=== PATIENT | male | born 1950 | race Caucasian/White ===

== ENCOUNTER → 2016-08-24 | Outpatient (CLI) | payer BC ==
[2014-11-17 11:24] VITALS: BP 138/78
[~2016-08-24] MED LIST: ASPI-482 PO; HYDR-2666 PO; LISI10TA2 PO; MECL12.5 PO; ONDA4TAB7 PO; TRAM50TA PO
--- NOTE | 2016-08-24 13:04 | RAD ---
Barrett Hernandez ultrasound abdomen complete on 08/24/2016 at 0812 hours Indication: Bloating and recent food poisoning. The visualized pancreas is unremarkable. The aorta and IVC are unremarkable. The liver is normal in size. There is mild increased echogenicity consistent with fatty infiltration. No discrete mass is detected. The gallbladder is without stones or sludge. No wall thickening or pericholecystic fluid is identified. No biliary ductal dilatation is seen. The kidneys are unremarkable apart from a nonobstructing 9 mm calculus in the left kidney. No hydronephrosis is seen. There is no ascites. The spleen is unremarkable. Impression: Fatty infiltration of the liver and nonobstructing left renal calculus. There is no evidence of cholelithiasis or acute cholecystitis. MTDD
== END | disposition home or self-care (01) ==
LOC: US 07:15
PROVIDERS: ATTEND Family Medicine
DX: R10.11 Right upper quadrant pain (principal); R14.0 Abdominal distension (gaseous); A05.9 Bacterial foodborne intoxication, unspecified; K76.0 Fatty (change of) liver, not elsewhere classified; N20.0 Calculus of kidney
CPT/HCPCS: 76700

== ENCOUNTER → 2017-03-23 | Outpatient (CLI) | payer BC ==
[2014-11-17 11:24] VITALS: BP 138/78
[~2017-03-23] MED LIST changes: +BUPIVACAINE MPF 0.5% 10 ML VIAL for KCIC. IJ ONE; -HYDR-2666 PO; +HYDR-2758 PO; +IOHEXOL 300 MG/ML 50 ML VIAL. INT ART ONE; +LIDOCAINE 1% Multi-Dose 20 ML VIAL. ID ONE; +methylPREDNISolone ACETATE 40 MG/ML VIAL. INT ART ONE
--- NOTE | 2017-03-23 13:48 | KCIC ---
PROCEDURE Therapeutic right hip injection using fluoroscopic guidance. HISTORY Hip pain. Pain for 3 or 4 months. TECHNIQUE The procedure was explained to the patient as were potential risks, including infection, bleeding or allergic reaction. All questions were answered. Informed written and verbal consent was obtained. The hip was prepped and draped in the usual sterile manner. Following administration of local anesthetic, a 22-gauge spinal needle was advanced into the hip joint without difficulty, with care taken to avoid the vascular structures. Stylet was removed and following negative aspiration, a mixture of 4 cc Omnipaque-300, 2 cc (80 mg) Depo-Medrol, 4 cc 0.5% Marcaine and 4 cc 1% lidocaine were injected without difficulty. Fluoroscopy demonstrates uniform and satisfactory distribution of the injection through the hip. The needle was removed. There was good hemostasis at the injection site. The patient left in stable condition without immediate complication. A single spot image was obtained. FLUOROSCOPY TIME: 19 seconds Electronically signed by: Charli Ho MD (03/23/2017 1:45 PM) [facility]-KCIC2
== END | disposition home or self-care (01) ==
LOC: KCIC 10:04
PROVIDERS: ATTEND Nurse Practitioner Gerontology
DX: M25.551 Pain in right hip (principal)
CPT/HCPCS: 20610; 77002; J1030; Q9967

== ENCOUNTER → 2017-08-27 | Outpatient (CLI) | payer BC | END | disposition home or self-care (01) | LOC: KCIC 14:09 | DX: Z01.818 Encounter for other preprocedural examination (principal); Z87.891 Personal history of nicotine dependence | CPT/HCPCS: 71046 ==

== ENCOUNTER → 2018-09-16 | Outpatient (CLI) | payer MEDICARE, OTHER ==
[2014-11-17 11:24] VITALS: BP 138/78
[~2018-09-16] MED LIST changes: -BUPIVACAINE MPF 0.5% 10 ML VIAL for KCIC. IJ ONE; -HYDR-2758 PO; +HYDR-2761 PO; -IOHEXOL 300 MG/ML 50 ML VIAL. INT ART ONE; -LIDOCAINE 1% Multi-Dose 20 ML VIAL. ID ONE; -methylPREDNISolone ACETATE 40 MG/ML VIAL. INT ART ONE
--- NOTE | 2018-09-16 16:11 | KCIC ---
EXAM: Abdomen one view. HISTORY: Left renal stone. COMPARISON: 03/30/2011. FINDINGS: A frontal view of the abdomen is obtained. A calculus lateral to the left L3 transverse process measures 1.4 x 0.7 cm. No clear additional renal calculi are identified bilaterally. There are no distended small bowel loops. There is gas distally. Instrumented posterior fusion changes extend from L2 through both iliac wings. There are instrumented anterior fusion changes at L5-S1, and laminectomies from L3 through L5. A right total hip arthroplasty is partially visualized. IMPRESSION: 1. Findings consistent with a 1.4 cm left proximal ureteral calculus. CT could further evaluate if the diagnosis remains unclear. Electronically signed by: Darnell Plasencia MD (09/16/2018 4:08 PM) [facility]
== END | disposition home or self-care (01) ==
LOC: KCIC 12:41
PROVIDERS: ATTEND Urology
DX: N20.9 Urinary calculus, unspecified (principal)
CPT/HCPCS: 74018

== ENCOUNTER → 2018-10-15 | Outpatient (CLI) | payer MEDICARE, OTHER ==
[2014-11-17 11:24] VITALS: BP 138/78
--- NOTE | 2018-10-16 08:58 | KCIC ---
KUB Clinical Indication: Ureteral calculus. Comparison: KUB, September 16, 2018. Findings: There are 3 proximal left ureteral calculi in a row, largest measuring 9 x 6 mm. There are at least 2 sub-5 mm left renal calculi. No definite right renal calculus is seen. The bowel gas pattern is nonobstructive. Redemonstrated posterior fusion hardware of the lumbar spine and sacroiliac joints. Fusion hardware L5/S1. This Multilevel posterior decompression. Right hip arthroplasty. Diffuse demineralization. IMPRESSION: There are 3 proximal left ureteral calculi. Electronically signed by: Agustín Cruz MD (10/16/2018 8:54 AM) [id number]
== END | disposition home or self-care (01) ==
LOC: KCIC 15:18
PROVIDERS: ATTEND Urology
DX: N20.1 Calculus of ureter (principal)
CPT/HCPCS: 74018

== ENCOUNTER → 2018-11-28 | Outpatient (CLI) | payer MEDICARE, OTHER ==
[2014-11-17 11:24] VITALS: BP 138/78
--- NOTE | 2018-11-28 14:01 | KCIC ---
CT HEAD WO CONTRAST History: Daily headaches for 6 months Comparison: November 15, 2014 Technique: Noncontrast CT imaging was performed of the head. Exposure: One or more of the following individualized dose reduction techniques were utilized for this examination: 1. Automated exposure control 2. Adjustment of the mA and/or kV according to patient size 3. Use of iterative reconstruction technique. Findings: No acute extra-axial or parenchymal hemorrhage is identified. There is no significant intra-axial mass effect, midline shift, or extra-axial fluid collection. The simmons-white differentiation of the major vascular territories is preserved. The ventricles, sulci, and cisterns are within normal limits in size and configuration. The mastoid air cells and the visualized paranasal sinuses are aerated. No acute calvarial abnormality is identified. Impression: 1. No acute intracranial abnormality is identified. Electronically signed by: Parish Thomas MD (11/28/2018 1:58 PM) [facility]-KCIC1
== END | disposition home or self-care (01) ==
LOC: KCIC CT 13:14
PROVIDERS: ATTEND Family Medicine
DX: G44.52 New daily persistent headache (NDPH) (principal)
CPT/HCPCS: 70450

== ENCOUNTER 2019-01-01 11:47 | Inpatient (IN) | payer MEDICARE, OTHER ==
[~2019-01-01] VITALS: Ht 177.8 cm; Wt 100.0 kg
[2019-01-01] MEDS ORDERED: IV NORMAL SALINE 1000ML BAG 1,000 ML IV SCH (12:24)
[2019-01-01] MEDS ORDERED: MAGNESIUM HYDROXIDE 2,400 MG/30 ML ORAL.SUSP. PO PRN (12:30)
[2019-01-01] MEDS ORDERED: ONDANSETRON PF 4 MG/2 ML VIAL. IV PRN (12:30)
[2019-01-01] MEDS ORDERED: MAG HYDROX/ALUMINUM HYD/SIMETH 30 ML ORAL.SUSP PO PRN (12:30)
--- NOTE | 2019-01-01 12:50 | PDOC1 ---
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 and just had a temporal artery biopsy that was negative and has been on Prednisone intermittently over the summer until about a month ago. UA suggested he was de hydrated and had some bile in it, he was afebrile at the visit but sweating and mildly tachycardic with activity but not at rest, exam was non specific, some recent cat scratches did not appear infected and some erythema of left lower rosales was not consistent with cellulitis. Labs were drawn and he was given 2 grams of Rocephin Im as he did not want to be hospitalized, he was instructed to drink a gallon of fluid by bedtime and go to ER if wymptoms worsenes, they did not but he is not feeling better today. His lab showed a low WBC, low platelets, mildly elevated LFTs and glucose and a severe decline in his baseline renal function with eGFR in the 30s. He wanted to be hospitalized and is a direct admit for eval of sepsis, LAYO Past Medical History Cardiovascular: HTN Pulmonary: No pertinent hx GI: Irritable bowel disease Heme/Onc: No pertinent hx Hepatobiliary: Other (fatty liver) Psych: No pertinent hx Rheumatologic: Other (OA, hx of + RF) Infectious disease: No pertinent hx, Other (Lyme disease 1989) ENT: No pertinent hx Renal/: Other Endocrine: Other (glucose intolerance) Dermatology: Other (recent cat scratches) Past Surgical History Past Surgical History: Cataract Removal, Total knee replacement, Other Family History Family History: Coronary Artery Disease, Diabetes, Other Social History ALCOHOL: other Drugs: None Current Medications Current Medications Current Medications Medications (Trade) Dose Ordered Sig/Joelle Start Time Stop Time Status Last Admin Dose Admin Acetaminophen (Tylenol) 650 mg PRN Q6HRS PRN 01/01/19 12:30 UNV Al Hydroxide/Mg Hydroxide (Mylanta Plus Xs) 30 ml PRN Q3HRS PRN 01/01/19 12:30 UNV Enoxaparin Sodium (Lovenox 40mg Syringe) 40 mg Q24H 01/01/19 12:30 UNV Magnesium Hydroxide (Milk Of Magnesia) 2,400 mg PRN Q12HR PRN 01/01/19 12:30 UNV Ondansetron HCl (Zofran) 4 mg PRN Q6HRS PRN 01/01/19 12:30 UNV Potassium Chloride/Sodium Chloride 1,000 ml @ 100 mls/hr Q10H 01/01/19 12:24 UNV Sodium Chloride 1,000 ml @ 100 mls/hr Q10H 01/01/19 12:24 01/01/19 22:23 UNV Zolpidem Tartrate (Ambien) 5 mg PRN QHS PRN 01/01/19 12:30 UNV Allergies Allergies Allergies Coded Allergies Type Severity Reaction Last Updated Verified No Known Drug Allergies 11/15/14 No ROS Review of System CONSTITUTIONAL: No fever or chills EYES: No recent changes SKIN: No rash or itching CARDIOVASCULAR: No chest pain, syncope, palpitations, or edema RESPIRATORY: No SOB or cough GASTROINTESTINAL: No nausea, vomiting or abdominal pain NEUROLOGICAL: No headaches or weakness ENDOCRINE: No cold or heat intolerance GENITOURINARY: No urgency or frequency of urination MUSCULOSKELETAL: No back pain or joint pain LYMPHATICS: No enlarged lymph nodes PSYCHIATRIC: No anxiety or depression Physical Exam Physical Exam GEN.: No apparent distress. Alert and oriented. HEENT: Head is normocephalic, atraumatic NECK: Supple. LUNGS: Clear to auscultation. HEART: RRR, S1, S2 present. Peripheral pulses intact ABDOMEN: Soft, nontender. Positive bowel sounds. EXTREMITIES: Without any cyanosis. NEUROLOGIC: Normal speech, normal tone PSYCHIATRIC: Normal affect, normal mood. SKIN: No ulcerations VTE Prophylaxis Ordered VTE Prophylaxis Devices: Yes VTE Pharmacological Prophylaxi: No Assessment/Plan Assessment/Plan fever sepsis -acute leukopenia, thrombocytopenia LAYO abnormal Lfts Rheumatoid factor positive OA hx of PMR hx of Lyme arthritis - 1989 glucose intolerance low testosterone on replacement Vitamin D def Manuel HOLLAND MD Jan 01, 2019 12:50
[2019-01-01 13:00] VITALS: BP 105/44
[2019-01-01] MEDS ORDERED: HYDROcodone/APAP 5/325MG 1 TAB TABLET PO PRN (13:00)
--- NOTE | 2019-01-01 14:14 | EKG ---
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
[2019-01-01] MEDS: ONDANSETRON ODT 4 MG TAB.RAPDIS. PO SCH ×2 (14:28→18:45)
[2019-01-01] MEDS: ENOXAPARIN 40 MG/0.4 ML SYRINGE. SQ SCH (14:30)
[2019-01-01 15:00] VITALS: BP 129/111
[2019-01-01 15:01] LABS: PROTHROMBIN TIME PATIENT 13.4 SEC (11.7-14.0)
--- NOTE | 2019-01-01 17:03 | RAD ---
EXAM: PA and Lateral Views of the Chest DATE: 01/01/2019 12:24 PM INDICATION: Fever COMPARISON: 08/27/2017 FINDINGS: The heart is not enlarged. Mediastinal and hilar contours are normal. Linear opacities in the lung bases likely scarring/atelectasis. No lobar consolidation. No pleural effusion or pneumothorax. IMPRESSION: 1. No radiographic evidence for acute cardiopulmonary process. Electronically signed by: Michel Krishnamurthy MD (01/01/2019 5:01 PM) [facility]
[2019-01-01] MEDS ORDERED: cefTRIAXone IV Push 2 GM VIAL. IVP ONE (17:30)
[2019-01-01] MEDS ORDERED: AZITHROMYCIN 250 MG TABLET. PO ONE (17:30)
[2019-01-01 17:33] LABS: BASO % 1 % (0-3); EOS % 0 % (0-3); HEMATOCRIT 45.6 % (39.0-53.0); HEMOGLOBIN 15.8 g/dL (13.0-17.5); LYMPH # 0.4 x10^3/uL (1.0-4.8); LYMPH % 25 % (24-48); MEAN CORPUSCULAR HEMOGLOBIN 29 pg (25-35); MEAN CORPUSCULAR HGB CONC 35 g/dL (31-37); MEAN CORPUSCULAR VOLUME 83 fL (79-100); MONO # 0.3 x10^3/uL (0.0-1.1); MONO % 17 % (0-9); NEUT # 0.8 x10^3/uL (1.8-7.7); NEUT % 57 % (31-73); PLATELET COUNT 89 x10^3/uL (140-400); RED BLOOD COUNT 5.48 x10^6/uL (4.30-5.70); RED CELL DISTRIBUTION WIDTH 15.6 % (11.5-14.5)
[2019-01-01 17:36] LABS: CREATININE 1.7 mg/dL (0.7-1.3); GFR 40.2; POTASSIUM 3.7 mmol/L (3.5-5.1)
[2019-01-01 17:37] LABS: WHITE BLOOD COUNT 1.5 x10^3/uL (4.0-11.0)
[2019-01-01 17:44] LABS: PHOSPHORUS 2.7 mg/dL (2.6-4.7)
--- NOTE | 2019-01-01 17:49 | RAD ---
Limited abdominal ultrasound HISTORY: Abnormal LFTs. Fever. TECHNIQUE: Routine multiplanar sequences are obtained. FINDINGS: Liver is borderline enlarged at 17.9 cm. Coarse hepatic echogenicity, would most likely be due to steatosis. This does limit ultrasound penetration with could compromise detection of hepatic lesion. Echogenic reflector with posterior shadowing in the liver, compatible with an 11 mm calcification. Note that a calcification is seen in liver on prior CT of 02/28/2011, possibly the same structure. Right kidney measures 11.9 cm longitudinal without hydronephrosis. Small echogenic reflecting focus within the mid pole likely a small calculus. No definite right renal lesion. No significant gallbladder wall thickening. No evidence of gallstone. No biliary ductal dilatation. Pancreas, inferior vena cava and aorta are poorly visualized. IMPRESSION: 1. Borderline hepatomegaly with steatosis. Calcified lesion within the liver, may represent a granuloma, probably also visualized on CT scan from 2010. 2. Right renal echogenic focus likely a calculus, without evidence of hydronephrosis. Electronically signed by: Charli Ho MD (01/01/2019 5:46 PM) [facility]
[2019-01-01 18:17] LABS: BILIRUBIN,URINE NEGATIVE (NEG); CLARITY,URINE CLEAR; COLOR,URINE YELLOW; NITRITE,URINE NEGATIVE (NEG); PROTEIN,URINE NEGATIVE (NEG-TRACE); UROBILINOGEN,URINE 0.2 mg/dL (0.2 mg/dL)
[2019-01-01 18:24] LABS: BACTERIA,URINE FEW /HPF (0-FEW); HYALINE CASTS, URINE MODERATE /HPF; SQUAMOUS EPITHELIAL CELL,UR FEW /LPF
[2019-01-01 18:26] LABS: RBC,URINE OCC /HPF (0-2)
[2019-01-01 18:36] LABS: % ATYL 6 % (0-0); % BANDS 29 % (0-9); % BASOS 1 % (0-3); % LYMPHS 24 % (24-48); % MONOS 16 % (0-10); % SEGS 24 % (35-66); PLT ESTIMATE DECREASED (ADEQUATE)
[2019-01-01 18:37] LABS: ANISOCYTOSIS SLIGHT; OVALOCYTES FEW
[2019-01-01 18:39] LABS: INFLUENZA A PATIENT NEGATIVE (NEGATIVE); INFLUENZA B PATIENT NEGATIVE (NEGATIVE)
[2019-01-01] MEDS: CEFEPIME HCL IV Push 1 GM VIAL. IVP SCH (18:45)
[2019-01-01] MEDS: DOXYCYCLINE HYCLATE 100 MG TABLET PO SCH ×2 (18:45→20:39)
[2019-01-01 19:00] VITALS: BP 92/60
[2019-01-01] MEDS ORDERED: FLU VAX QS 2019-20 (36MOS+)/PF 0.5 ML SYRINGE. VAX IM ONE (19:00)
--- NOTE | 2019-01-01 19:20 | NUR ---
Admission interview done w/pt, who includes the following details regarding his medical history/providers at [facility]. Pt feels that most of this information should be available "in the cloud", and would like [facility] to request this information to supplement the testing already done this admission. MDs involved in patient's care include: Dr. Simpson- bilateral TKRs, approximately 8-9 years ago ([id number]) [employer]- Dr. Teresa Francis Quill Layer-Dr. Maribel Ayala. Pt has hearing difficulty, hearing on R is better than on L. 'Needs hearing aids, but they don't work well enough yet for me to pay $600 to get them'. Ortho-hip replacement Dr. Naresh Yen. R hip done 05/2018 Urologist- Dr. Jaffe. Seen for temporary stent placement in [facility] for kidney stones 06/2018. Pt reports passing 5 stones last week, has pics on his phone. Ortho-back Dr. Alex Terrazasij L1-S2 laminectomy and fusion. 'First surgery failed, had to do this procedure the second time." 09/2017 Dr. Swapnil Rivera at [facility] [place] did bilateral lens replacement following cataract removal 4 years ago (2014). Vision corrected to 20/20 at 18", pt does wear reading glasses. Pt relates history of transient fevers, sweating profusely, becomes dehydrated rapidly. Temps range from 98.6-102.6. Also has a headache for approximately one week, temporal, worse on R.
[2019-01-01] MEDS: ACETAMINOPHEN 325 MG TABLET. PO PRN (22:50)
[2019-01-01] MEDS: ZOLPIDEM 5 MG TABLET. PO PRN (22:56)
[2019-01-01] MEDS: traMADol 50 MG TABLET PO PRN (22:56)
[2019-01-01 23:00] VITALS: BP 111/57
[2019-01-02] VITALS (7 sets, daily range): BP systolic 120–135; BP diastolic 68–83
[2019-01-02] MEDS: CEFEPIME HCL IV Push 1 GM VIAL. IVP SCH ×4 (00:33→22:04)
[2019-01-02 04:58] LABS: BASO % 1 % (0-3); EOS % 1 % (0-3); HEMATOCRIT 38.6 % (39.0-53.0); HEMOGLOBIN 13.2 g/dL (13.0-17.5); LYMPH # 0.8 x10^3/uL (1.0-4.8); LYMPH % 51 % (24-48); MEAN CORPUSCULAR HEMOGLOBIN 29 pg (25-35); MEAN CORPUSCULAR HGB CONC 34 g/dL (31-37); MEAN CORPUSCULAR VOLUME 84 fL (79-100); MONO # 0.3 x10^3/uL (0.0-1.1); MONO % 17 % (0-9); NEUT # 0.5 x10^3/uL (1.8-7.7); NEUT % 31 % (31-73); PLATELET COUNT 86 x10^3/uL (140-400); RED CELL DISTRIBUTION WIDTH 15.1 % (11.5-14.5)
[2019-01-02 05:04] LABS: WHITE BLOOD COUNT 1.7 x10^3/uL (4.0-11.0)
[2019-01-02 05:14] LABS: ALBUMIN 2.9 g/dL (3.4-5.0); ALBUMIN/GLOBULIN RATIO 0.9 (1.0-1.7); CALCIUM 8.2 mg/dL (8.5-10.1); CREATININE 1.3 mg/dL (0.7-1.3); GFR 54.7; POTASSIUM 3.7 mmol/L (3.5-5.1); TOTAL BILIRUBIN 0.5 mg/dL (0.2-1.0)
[2019-01-02] MEDS: traMADol 50 MG TABLET PO PRN ×3 (07:01→20:57)
[2019-01-02] MEDS: ONDANSETRON ODT 4 MG TAB.RAPDIS. PO SCH ×4 (07:02→17:58)
[2019-01-02] MEDS: ACETAMINOPHEN 325 MG TABLET. PO PRN ×3 (07:02→21:02)
[2019-01-02] MEDS: DOXYCYCLINE HYCLATE 100 MG TABLET PO SCH ×2 (09:21→20:57)
--- NOTE | 2019-01-02 10:24 | PDOC ---
Infectious Disease Note Vital Sign Vital Signs Vital Signs Date Time Temp Pulse Resp B/P (MAP) Pulse Ox O2 Delivery O2 Flow Rate FiO2 01/02/19 09:23 16 Room Air 01/02/19 07:00 98.2 80 135/68 (90) 95 98.2 Labs Lab Laboratory Tests Test 01/01/19 14:19 01/01/19 15:15 01/01/19 16:36 01/01/19 17:29 White Blood Count 1.5 x10^3/uL (4.0-11.0) Red Blood Count 5.48 x10^6/uL (4.30-5.70) Hemoglobin 15.8 g/dL (13.0-17.5) Hematocrit 45.6 % (39.0-53.0) Mean Corpuscular Volume 83 fL (79-100) Mean Corpuscular Hemoglobin 29 pg (25-35) Mean Corpuscular Hemoglobin Concent 35 g/dL (31-37) Red Cell Distribution Width 15.6 % (11.5-14.5) Platelet Count 89 x10^3/uL (140-400) Neutrophils (%) (Auto) 57 % (31-73) Lymphocytes (%) (Auto) 25 % (24-48) Monocytes (%) (Auto) 17 % (0-9) Eosinophils (%) (Auto) 0 % (0-3) Basophils (%) (Auto) 1 % (0-3) Neutrophils # (Auto) 0.8 x10^3/uL (1.8-7.7) Lymphocytes # (Auto) 0.4 x10^3/uL (1.0-4.8) Monocytes # (Auto) 0.3 x10^3/uL (0.0-1.1) Eosinophils # (Auto) 0.0 x10^3/uL (0.0-0.7) Basophils # (Auto) 0.0 x10^3/uL (0.0-0.2) Segmented Neutrophils % 24 % (35-66) Band Neutrophils % 29 % (0-9) Lymphocytes % 24 % (24-48) Atypical Lymphocytes % (Manual) 6 % (0-0) Monocytes % 16 % (0-10) Basophils % 1 % (0-3) Platelet Estimate Decreased (ADEQUATE) Large Platelets Occ Anisocytosis Slight Ovalocytes Few Erythrocyte Sedimentation Rate 2 (0-15) Prothrombin Time 13.4 SEC (11.7-14.0) Prothromb Time International Ratio 1.1 (0.8-1.1) Sodium Level 137 mmol/L (136-145) Potassium Level 3.7 mmol/L (3.5-5.1) Chloride Level 101 mmol/L (98-107) Carbon Dioxide Level 27 mmol/L (21-32) Anion Gap 9 (6-14) Blood Urea Nitrogen 19 mg/dL (8-26) Creatinine 1.7 mg/dL (0.7-1.3) Estimated GFR (Cockcroft-Gault) 40.2 Glucose Level 109 mg/dL (70-99) Calcium Level 9.0 mg/dL (8.5-10.1) Phosphorus Level 2.7 mg/dL (2.6-4.7) Magnesium Level 2.0 mg/dL (1.8-2.4) Procalcitonin 0.40 ng/mL (0.00-0.10) Rheumatoid Factor 42.0 IU/mL (0.0-13.9) Influenza Type A Antigen Negative (NEGATIVE) Influenza Type B Antigen Negative (NEGATIVE) Urine Collection Type Unknown Urine Color Yellow Urine Clarity Clear Urine pH 6.0 Urine Specific [place]ote 1.015 Urine Protein Negative mg/dL (NEG-TRACE) Urine Glucose (UA) Negative mg/dL (NEG) Urine Ketones (Stick) Negative mg/dL (NEG) Urine Blood Negative (NEG) Urine Nitrite Negative (NEG) Urine Bilirubin Negative (NEG) Urine Urobilinogen Dipstick 0.2 mg/dL (0.2 mg/dL) Urine Leukocyte Esterase Negative (NEG) Urine RBC Occ /HPF (0-2) Urine WBC 1-4 /HPF (0-4) Urine Squamous Epithelial Cells Few /LPF Urine Renal Epithelial Cells Few /LPF Urine Bacteria Few /HPF (0-FEW) Urine Hyaline Casts Moderate /HPF Urine Mucus Marked /LPF Glucose (Fingerstick) 113 mg/dL (70-99) Test 01/01/19 19:29 01/01/19 21:28 01/02/19 04:05 01/02/19 07:36 Lactic Acid Level 1.3 mmol/L (0.4-2.0) Glucose (Fingerstick) 124 mg/dL (70-99) 88 mg/dL (70-99) White Blood Count 1.7 x10^3/uL (4.0-11.0) Red Blood Count 4.60 x10^6/uL (4.30-5.70) Hemoglobin 13.2 g/dL (13.0-17.5) Hematocrit 38.6 % (39.0-53.0) Mean Corpuscular Volume 84 fL (79-100) Mean Corpuscular Hemoglobin 29 pg (25-35) Mean Corpuscular Hemoglobin Concent 34 g/dL (31-37) Red Cell Distribution Width 15.1 % (11.5-14.5) Platelet Count 86 x10^3/uL (140-400) Neutrophils (%) (Auto) 31 % (31-73) Lymphocytes (%) (Auto) 51 % (24-48) Monocytes (%) (Auto) 17 % (0-9) Eosinophils (%) (Auto) 1 % (0-3) Basophils (%) (Auto) 1 % (0-3) Neutrophils # (Auto) 0.5 x10^3/uL (1.8-7.7) Lymphocytes # (Auto) 0.8 x10^3/uL (1.0-4.8) Monocytes # (Auto) 0.3 x10^3/uL (0.0-1.1) Eosinophils # (Auto) 0.0 x10^3/uL (0.0-0.7) Basophils # (Auto) 0.0 x10^3/uL (0.0-0.2) Sodium Level 138 mmol/L (136-145) Potassium Level 3.7 mmol/L (3.5-5.1) Chloride Level 105 mmol/L (98-107) Carbon Dioxide Level 24 mmol/L (21-32) Anion Gap 9 (6-14) Blood Urea Nitrogen 15 mg/dL (8-26) Creatinine 1.3 mg/dL (0.7-1.3) Estimated GFR (Cockcroft-Gault) 54.7 BUN/Creatinine Ratio 12 (6-20) Glucose Level 90 mg/dL (70-99) Calcium Level 8.2 mg/dL (8.5-10.1) Total Bilirubin 0.5 mg/dL (0.2-1.0) Aspartate Amino Transf (AST/SGOT) 66 U/L (15-37) Alanine Aminotransferase (ALT/SGPT) 50 U/L (16-63) Alkaline Phosphatase 103 U/L (46-116) Total Protein 6.0 g/dL (6.4-8.2) Albumin 2.9 g/dL (3.4-5.0) Albumin/Globulin Ratio 0.9 (1.0-1.7) Objective Assessment Fever Leukopenia with bandemia Lymphocytosis Cat scratch Tick bites and bug bite Plan Plan of Care Feeling a little better Could be viral/tick - unlikley Lyme/cat scratch - Bartonella or Pasturella Check RMSF/Ehrlichia/Bartonella/[place]/HSV/CMV/EBV Cont Doxy and Cefepime F/u labs and cults D/w D/w lab Acquire labs from [facility] from 12/25 Thank you # [id number] SARBJIT PATTERSON MD Jan 02, 2019 10:23
[2019-01-02] MEDS: ENOXAPARIN 40 MG/0.4 ML SYRINGE. SQ SCH (11:59)
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
--- NOTE | 2019-01-02 17:07 | PDOC ---
PROGRESS NOTES Subjective Febrile overnight, renal function responded well to IV hydration, RF +, neutropenic with increased lymphs, Heme consulted but does not think he has Leukemia, he remains alert Objective febrile to 100.2 BP: stable General: A&O, no obvious pain or effusion or synovitis Heart: RRR Lungs: no cough Abd: non tender Ext: no C/C/E Skin: no significant rash WBC: 1.7 Hgb: 13.2 K+: 3.7 Creat: 1.3 Vital Signs Vital Signs Date Time Temp Pulse Resp B/P (MAP) Pulse Ox O2 Delivery O2 Flow Rate FiO2 01/02/19 16:09 16 95 Room Air 01/02/19 15:00 98.2 65 130/70 (90) 98.2 I & O Intake and Output 01/02/19 06:59 Intake Total 1800 ml Output Total 1925 ml Balance -125 ml Intake Oral 800 ml IV Total 1000 ml Output Urine Total 1925 ml # Voids 2 Assessment and Plan sepsis -acute leukopenia, thrombocytopenia - IV abx, ID following LAYO - improved abnormal [facility] Rheumatoid factor positive OA hx of PMR hx of Lyme arthritis - 1989 glucose intolerance low testosterone on replacement Vitamin D def possible leukemia - Heme consult Manuel HOLLAND MD Jan 02, 2019 17:07
[2019-01-02] MEDS: ZOLPIDEM 5 MG TABLET. PO PRN (20:57)
[2019-01-03] MEDS: ONDANSETRON ODT 4 MG TAB.RAPDIS. PO SCH ×5 (01:04→23:56)
--- NOTE | 2019-01-03 03:31 | CONS ---
DATE OF CONSULTATION: 01/02/2019 MEDICAL ONCOLOGY CONSULTATION CONSULTATION REQUESTED BY: Dr. Jared Napier. REASON FOR CONSULTATION: Leukopenia, thrombocytopenia and fever. HISTORY OF PRESENT ILLNESS: The patient is a 68-year-old gentleman who has had fever and night sweats since 12/28/2018 and he was evaluated by his primary care physician on 01/01/2019 and subsequently admitted to for further evaluation. He has been seeing his dragline mechanic at [facility] for workup of possible temporal arteritis and he underwent a temporal artery biopsy that was negative. He has been on prednisone intermittently over the summer of 2018. He also notes that his cat had scratched him recently. He was admitted to and started on antibiotics. He was noted to have leukopenia with a WBC of 1.5 on 01/01/2019 and a platelet count of 89 and hemoglobin of 15.8. His differential count revealed elevated bands at 29% and 16% monocytes. However, the absolute monocyte count was normal. There was no evidence of blasts noted in the peripheral smear. I was asked to see the patient for further evaluation of thrombocytopenia and leukopenia. The patient denies any nosebleeds or gum bleeding. No hematemesis, melena or hematochezia. No hemoptysis or hematuria. No loss of weight or loss of appetite. PAST MEDICAL HISTORY: Hypertension, irritable bowel disease, fatty liver, osteoarthritis, positive rheumatoid factor and history of Lyme disease in 1989. PAST SURGICAL HISTORY: Cataract removal, total knee replacement. FAMILY HISTORY: Positive for diabetes, coronary artery disease and a cousin had leukemia. Father had some type of blood disorder. SOCIAL HISTORY: He quit smoking in 1988. REVIEW OF SYSTEMS: A 12-point review of system was performed. Pertinent positives are mentioned in the history of present illness. Rest of the system review is negative. PHYSICAL EXAMINATION: GENERAL APPEARANCE: The patient is a 68-year-old gentleman who is in no acute cardiorespiratory distress. VITAL SIGNS: Blood pressure 135/68, temperature 98.2. Temperature at the time of admission on 01/01/2019 was 100.2. HEAD: Atraumatic, normocephalic. EYES: No icterus. NECK: Supple. CHEST: Bilaterally symmetrical. HEART: S1, S2 normal. ABDOMEN: Soft, nontender. CENTRAL NERVOUS SYSTEM: No focal neurological deficits. LYMPHATICS: No lymphadenopathy. SKIN: No rashes. PSYCHOLOGIC: Mood and affect are appropriate. LABORATORY DATA: On 01/01/2019, WBC 1.5, hemoglobin 15.8, platelet count 89,000. There is evidence of 29% bands, 6% atypical lymphocytes, 16% monocytes and no blasts. ESR is 2. INR 1.1. Creatinine 1.3. Calcium 8.2, total bilirubin 0.5, AST 66, ALT 50, total protein 6, albumin 2.9 and alkaline phosphatase 103. IMPRESSION AND PLAN: 1. Leukopenia with elevated bands and underlying fever is suggestive of reactive leukopenia from underlying infection. He has evidence of 29% bands and 16% monocytes. However, the absolute monocyte count is normal at 0.3 and there is no evidence of blasts. Hence, it is unlikely that he has a primary bone marrow disorder such as leukemia. I suspect that this is a reactive leukopenia. I would consult Infectious Diseases. I will continue to monitor CBC. If there is no improvement or if there is any development of blasts, then I will proceed with a bone marrow biopsy. I discussed with Dr. Jared Napier. I discussed with the patient and his . 2. Thrombocytopenia, which I suspect is reactive thrombocytopenia from underlying infection. Continue to monitor. 3. Fever. Consult ID. DAWN POLANCO MD DR: ASIA/nts JOB#: [id number] / [id number] MARCELO
[2019-01-03] MEDS: CEFEPIME HCL IV Push 1 GM VIAL. IVP SCH ×3 (06:34→22:05)
[2019-01-03 07:00] VITALS: BP 132/81
[2019-01-03] MEDS: DOXYCYCLINE HYCLATE 100 MG TABLET PO SCH ×2 (08:27→20:50)
[2019-01-03] MEDS: traMADol 50 MG TABLET PO PRN ×2 (08:32→19:28)
[2019-01-03] MEDS: ACETAMINOPHEN 325 MG TABLET. PO PRN ×2 (08:33→19:28)
[2019-01-03 08:58] LABS: BASO % 1 % (0-3); EOS # 0.1 x10^3/uL (0.0-0.7); EOS % 2 % (0-3); HEMATOCRIT 39.7 % (39.0-53.0); HEMOGLOBIN 13.4 g/dL (13.0-17.5); LYMPH # 1.5 x10^3/uL (1.0-4.8); LYMPH % 38 % (24-48); MEAN CORPUSCULAR HEMOGLOBIN 29 pg (25-35); MEAN CORPUSCULAR HGB CONC 34 g/dL (31-37); MEAN CORPUSCULAR VOLUME 85 fL (79-100); MONO # 0.6 x10^3/uL (0.0-1.1); MONO % 15 % (0-9); NEUT # 1.7 x10^3/uL (1.8-7.7); NEUT % 44 % (31-73); PLATELET COUNT 98 x10^3/uL (140-400); RED BLOOD COUNT 4.69 x10^6/uL (4.30-5.70); RED CELL DISTRIBUTION WIDTH 15.4 % (11.5-14.5); WHITE BLOOD COUNT 3.8 x10^3/uL (4.0-11.0)
[2019-01-03 09:15] LABS: ALBUMIN 3.2 g/dL (3.4-5.0); CALCIUM 8.6 mg/dL (8.5-10.1); CREATININE 1.1 mg/dL (0.7-1.3); GFR 66.4; POTASSIUM 3.9 mmol/L (3.5-5.1); TOTAL BILIRUBIN 0.5 mg/dL (0.2-1.0); TOTAL PROTEIN 6.5 g/dL (6.4-8.2)
--- NOTE | 2019-01-03 10:00 | PDOC ---
Infectious Disease Note Subjective Subjective Better. Less fever. eating some. Has right ear discomfort ROS ROS o/w neg Vital Sign Vital Signs Vital Signs Date Time Temp Pulse Resp B/P (MAP) Pulse Ox O2 Delivery O2 Flow Rate FiO2 01/03/19 08:35 19 94 Room Air 01/03/19 07:00 97.9 70 132/81 (98) 97.9 Physical Exam PHYSICAL EXAM CONSTITUTIONAL: He is cooperative. He is in no acute distress. HEENT: Pupils are with cataract surgery. Normal conjunctivae. Oral cavity, B TMI + LR. mild right ear canal erythema pharynx, and dentures are otherwise clear. NECK: Supple. Good range of motion. LUNGS: Clear to auscultation bilaterally. HEART: S1 and S2. ABDOMEN: Obese, soft, nontender, and nondistended with positive bowel sounds. EXTREMITIES: Without clubbing, cyanosis, or gross edema. SKIN: Without generalized rash. He does have some healing scratches here and there. There are some scabs. Joints are not grossly inflamed. back with probable yeast developing NEUROLOGIC: He is nonfocal. PSYCHIATRIC: Affect is pleasant. Labs Lab Laboratory Tests Test 01/02/19 11:49 01/02/19 16:27 01/02/19 20:07 01/03/19 07:14 Glucose (Fingerstick) 98 mg/dL (70-99) 85 mg/dL (70-99) 97 mg/dL (70-99) 91 mg/dL (70-99) Test 01/03/19 08:15 White Blood Count 3.8 x10^3/uL (4.0-11.0) Red Blood Count 4.69 x10^6/uL (4.30-5.70) Hemoglobin 13.4 g/dL (13.0-17.5) Hematocrit 39.7 % (39.0-53.0) Mean Corpuscular Volume 85 fL (79-100) Mean Corpuscular Hemoglobin 29 pg (25-35) Mean Corpuscular Hemoglobin Concent 34 g/dL (31-37) Red Cell Distribution Width 15.4 % (11.5-14.5) Platelet Count 98 x10^3/uL (140-400) Neutrophils (%) (Auto) 44 % (31-73) Lymphocytes (%) (Auto) 38 % (24-48) Monocytes (%) (Auto) 15 % (0-9) Eosinophils (%) (Auto) 2 % (0-3) Basophils (%) (Auto) 1 % (0-3) Neutrophils # (Auto) 1.7 x10^3/uL (1.8-7.7) Lymphocytes # (Auto) 1.5 x10^3/uL (1.0-4.8) Monocytes # (Auto) 0.6 x10^3/uL (0.0-1.1) Eosinophils # (Auto) 0.1 x10^3/uL (0.0-0.7) Basophils # (Auto) 0.0 x10^3/uL (0.0-0.2) Sodium Level 141 mmol/L (136-145) Potassium Level 3.9 mmol/L (3.5-5.1) Chloride Level 106 mmol/L (98-107) Carbon Dioxide Level 28 mmol/L (21-32) Anion Gap 7 (6-14) Blood Urea Nitrogen 11 mg/dL (8-26) Creatinine 1.1 mg/dL (0.7-1.3) Estimated GFR (Cockcroft-Gault) 66.4 BUN/Creatinine Ratio 10 (6-20) Glucose Level 115 mg/dL (70-99) Calcium Level 8.6 mg/dL (8.5-10.1) Total Bilirubin 0.5 mg/dL (0.2-1.0) Aspartate Amino Transf (AST/SGOT) 90 U/L (15-37) Alanine Aminotransferase (ALT/SGPT) 77 U/L (16-63) Alkaline Phosphatase 114 U/L (46-116) Total Protein 6.5 g/dL (6.4-8.2) Albumin 3.2 g/dL (3.4-5.0) Albumin/Globulin Ratio 1.0 (1.0-1.7) Micro Microbiology 01/01/19 Blood Culture - Preliminary, Resulted NO GROWTH AFTER 1 DAY Objective Assessment Fever - better Leukopenia with bandemia - better Transaminitis Lymphocytosis - better Cat scratch Tick bites and bug bite - Lyme - neg Plan Plan of Care Feeling a little better Could be viral/tick - cat scratch - Bartonella or Pasturella F/u RMSF/Ehrlichia/Bartonella/[place]/HSV/CMV/EBV Cont Doxy and Cefepime F/u labs and cults Nystatin Monitor right ear - may need drops if worsens D/w /daughter d/w nursing Acquire labs from [facility] from 12/25 SARBJIT PATTERSON MD Jan 03, 2019 10:00
[2019-01-03 11:00] VITALS: BP 125/77
[2019-01-03] MEDS: NYSTATIN 100,000 UNIT/GM TOPICAL CREAM 15GM TUBE. TP SCH ×2 (12:11→20:50)
[2019-01-03] MEDS: hydrOXYzine 25 MG TABLET PO PRN ×2 (12:11→19:28)
--- NOTE | 2019-01-03 12:17 | PDOC ---
PROGRESS NOTES Subjective Subjective HPI - f/u of Leukopenia ROS - fever improved Objective Objective Vital Signs Date Time Temp Pulse Resp B/P (MAP) Pulse Ox O2 Delivery O2 Flow Rate FiO2 01/03/19 11:00 97.8 70 16 125/77 (93) 93 Room Air 97.8 Intake and Output 01/03/19 06:59 Intake Total 4000 ml Output Total 3740 ml Balance 260 ml Intake Oral 3000 ml IV Total 1000 ml Output Urine Total 3740 ml Physical Exam Heart: Normal S1, Normal S2 General: Alert, Oriented X3, No acute distress Lungs: Clear to auscultation Neuro: Normal speech Psych/Mental Status: Mental status NL Assessment Assessment Problems Medical Problems: (1) Fever Status: Acute (2) Glucose intolerance Status: Chronic (3) OA (osteoarthritis) Status: Chronic IMPRESSION AND PLAN: 1. Leukopenia with elevated bands and underlying fever is suggestive of reactive leukopenia from underlying infection. He has evidence of 29% bands and 16% monocytes. However, the absolute monocyte count is normal at 0.3 and there is no evidence of blasts. Hence, it is unlikely that he has a primary bone marrow disorder such as leukemia. I suspect that this is a reactive leukopenia. I would consult Infectious Diseases. I will continue to monitor CBC. If there is no improvement or if there is any development of blasts, then I will proceed with a bone marrow biopsy. I discussed with Dr. Jared Napier. I discussed with the patient and his . WBC better at 3.8 on 01/03/19. 2. Thrombocytopenia, which I suspect is reactive thrombocytopenia from underlying infection. Continue to monitor. Plt better at 98 on 01/03/19. 3. Fever. Consulted ID. I d/w Dr Harvey. Comment Review of Relevant I have reviewed the following items july (where applicable) has been applied. Labs Laboratory Tests Test 01/01/19 14:19 01/01/19 15:15 01/01/19 16:36 01/01/19 17:29 White Blood Count 1.5 x10^3/uL (4.0-11.0) Red Blood Count 5.48 x10^6/uL (4.30-5.70) Hemoglobin 15.8 g/dL (13.0-17.5) Hematocrit 45.6 % (39.0-53.0) Mean Corpuscular Volume 83 fL (79-100) Mean Corpuscular Hemoglobin 29 pg (25-35) Mean Corpuscular Hemoglobin Concent 35 g/dL (31-37) Red Cell Distribution Width 15.6 % (11.5-14.5) Platelet Count 89 x10^3/uL (140-400) Neutrophils (%) (Auto) 57 % (31-73) Lymphocytes (%) (Auto) 25 % (24-48) Monocytes (%) (Auto) 17 % (0-9) Eosinophils (%) (Auto) 0 % (0-3) Basophils (%) (Auto) 1 % (0-3) Neutrophils # (Auto) 0.8 x10^3/uL (1.8-7.7) Lymphocytes # (Auto) 0.4 x10^3/uL (1.0-4.8) Monocytes # (Auto) 0.3 x10^3/uL (0.0-1.1) Eosinophils # (Auto) 0.0 x10^3/uL (0.0-0.7) Basophils # (Auto) 0.0 x10^3/uL (0.0-0.2) Segmented Neutrophils % 24 % (35-66) Band Neutrophils % 29 % (0-9) Lymphocytes % 24 % (24-48) Atypical Lymphocytes % (Manual) 6 % (0-0) Monocytes % 16 % (0-10) Basophils % 1 % (0-3) Platelet Estimate Decreased (ADEQUATE) Large Platelets Occ Anisocytosis Slight Ovalocytes Few Erythrocyte Sedimentation Rate 2 (0-15) Prothrombin Time 13.4 SEC (11.7-14.0) Prothromb Time International Ratio 1.1 (0.8-1.1) Sodium Level 137 mmol/L (136-145) Potassium Level 3.7 mmol/L (3.5-5.1) Chloride Level 101 mmol/L (98-107) Carbon Dioxide Level 27 mmol/L (21-32) Anion Gap 9 (6-14) Blood Urea Nitrogen 19 mg/dL (8-26) Creatinine 1.7 mg/dL (0.7-1.3) Estimated GFR (Cockcroft-Gault) 40.2 Glucose Level 109 mg/dL (70-99) Calcium Level 9.0 mg/dL (8.5-10.1) Phosphorus Level 2.7 mg/dL (2.6-4.7) Magnesium Level 2.0 mg/dL (1.8-2.4) Procalcitonin 0.40 ng/mL (0.00-0.10) Rheumatoid Factor 42.0 IU/mL (0.0-13.9) Lyme Disease IgG/IgM Antibodies <0.91 ISR (0.00-0.90) Influenza Type A Antigen Negative (NEGATIVE) Influenza Type B Antigen Negative (NEGATIVE) Urine Collection Type Unknown Urine Color Yellow Urine Clarity Clear Urine pH 6.0 Urine Specific [place] 1.015 Urine Protein Negative mg/dL (NEG-TRACE) Urine Glucose (UA) Negative mg/dL (NEG) Urine Ketones (Stick) Negative mg/dL (NEG) Urine Blood Negative (NEG) Urine Nitrite Negative (NEG) Urine Bilirubin Negative (NEG) Urine Urobilinogen Dipstick 0.2 mg/dL (0.2 mg/dL) Urine Leukocyte Esterase Negative (NEG) Urine RBC Occ /HPF (0-2) Urine WBC 1-4 /HPF (0-4) Urine Squamous Epithelial Cells Few /LPF Urine Renal Epithelial Cells Few /LPF Urine Bacteria Few /HPF (0-FEW) Urine Hyaline Casts Moderate /HPF Urine Mucus Marked /LPF Glucose (Fingerstick) 113 mg/dL (70-99) Test 01/01/19 19:29 01/01/19 21:28 01/02/19 04:05 01/02/19 07:36 Lactic Acid Level 1.3 mmol/L (0.4-2.0) Glucose (Fingerstick) 124 mg/dL (70-99) 88 mg/dL (70-99) White Blood Count 1.7 x10^3/uL (4.0-11.0) Red Blood Count 4.60 x10^6/uL (4.30-5.70) Hemoglobin 13.2 g/dL (13.0-17.5) Hematocrit 38.6 % (39.0-53.0) Mean Corpuscular Volume 84 fL (79-100) Mean Corpuscular Hemoglobin 29 pg (25-35) Mean Corpuscular Hemoglobin Concent 34 g/dL (31-37) Red Cell Distribution Width 15.1 % (11.5-14.5) Platelet Count 86 x10^3/uL (140-400) Neutrophils (%) (Auto) 31 % (31-73) Lymphocytes (%) (Auto) 51 % (24-48) Monocytes (%) (Auto) 17 % (0-9) Eosinophils (%) (Auto) 1 % (0-3) Basophils (%) (Auto) 1 % (0-3) Neutrophils # (Auto) 0.5 x10^3/uL (1.8-7.7) Lymphocytes # (Auto) 0.8 x10^3/uL (1.0-4.8) Monocytes # (Auto) 0.3 x10^3/uL (0.0-1.1) Eosinophils # (Auto) 0.0 x10^3/uL (0.0-0.7) Basophils # (Auto) 0.0 x10^3/uL (0.0-0.2) Sodium Level 138 mmol/L (136-145) Potassium Level 3.7 mmol/L (3.5-5.1) Chloride Level 105 mmol/L (98-107) Carbon Dioxide Level 24 mmol/L (21-32) Anion Gap 9 (6-14) Blood Urea Nitrogen 15 mg/dL (8-26) Creatinine 1.3 mg/dL (0.7-1.3) Estimated GFR (Cockcroft-Gault) 54.7 BUN/Creatinine Ratio 12 (6-20) Glucose Level 90 mg/dL (70-99) Calcium Level 8.2 mg/dL (8.5-10.1) Total Bilirubin 0.5 mg/dL (0.2-1.0) Aspartate Amino Transf (AST/SGOT) 66 U/L (15-37) Alanine Aminotransferase (ALT/SGPT) 50 U/L (16-63) Alkaline Phosphatase 103 U/L (46-116) Total Protein 6.0 g/dL (6.4-8.2) Albumin 2.9 g/dL (3.4-5.0) Albumin/Globulin Ratio 0.9 (1.0-1.7) Test 01/02/19 11:49 01/02/19 16:27 01/02/19 20:07 01/03/19 07:14 Glucose (Fingerstick) 98 mg/dL (70-99) 85 mg/dL (70-99) 97 mg/dL (70-99) 91 mg/dL (70-99) Test 01/03/19 08:15 01/03/19 10:56 White Blood Count 3.8 x10^3/uL (4.0-11.0) Red Blood Count 4.69 x10^6/uL (4.30-5.70) Hemoglobin 13.4 g/dL (13.0-17.5) Hematocrit 39.7 % (39.0-53.0) Mean Corpuscular Volume 85 fL (79-100) Mean Corpuscular Hemoglobin 29 pg (25-35) Mean Corpuscular Hemoglobin Concent 34 g/dL (31-37) Red Cell Distribution Width 15.4 % (11.5-14.5) Platelet Count 98 x10^3/uL (140-400) Neutrophils (%) (Auto) 44 % (31-73) Lymphocytes (%) (Auto) 38 % (24-48) Monocytes (%) (Auto) 15 % (0-9) Eosinophils (%) (Auto) 2 % (0-3) Basophils (%) (Auto) 1 % (0-3) Neutrophils # (Auto) 1.7 x10^3/uL (1.8-7.7) Lymphocytes # (Auto) 1.5 x10^3/uL (1.0-4.8) Monocytes # (Auto) 0.6 x10^3/uL (0.0-1.1) Eosinophils # (Auto) 0.1 x10^3/uL (0.0-0.7) Basophils # (Auto) 0.0 x10^3/uL (0.0-0.2) Sodium Level 141 mmol/L (136-145) Potassium Level 3.9 mmol/L (3.5-5.1) Chloride Level 106 mmol/L (98-107) Carbon Dioxide Level 28 mmol/L (21-32) Anion Gap 7 (6-14) Blood Urea Nitrogen 11 mg/dL (8-26) Creatinine 1.1 mg/dL (0.7-1.3) Estimated GFR (Cockcroft-Gault) 66.4 BUN/Creatinine Ratio 10 (6-20) Glucose Level 115 mg/dL (70-99) Calcium Level 8.6 mg/dL (8.5-10.1) Total Bilirubin 0.5 mg/dL (0.2-1.0) Aspartate Amino Transf (AST/SGOT) 90 U/L (15-37) Alanine Aminotransferase (ALT/SGPT) 77 U/L (16-63) Alkaline Phosphatase 114 U/L (46-116) Total Protein 6.5 g/dL (6.4-8.2) Albumin 3.2 g/dL (3.4-5.0) Albumin/Globulin Ratio 1.0 (1.0-1.7) Glucose (Fingerstick) 91 mg/dL (70-99) Laboratory Tests Test 01/02/19 16:27 01/02/19 20:07 01/03/19 07:14 01/03/19 08:15 Glucose (Fingerstick) 85 mg/dL (70-99) 97 mg/dL (70-99) 91 mg/dL (70-99) White Blood Count 3.8 x10^3/uL (4.0-11.0) Red Blood Count 4.69 x10^6/uL (4.30-5.70) Hemoglobin 13.4 g/dL (13.0-17.5) Hematocrit 39.7 % (39.0-53.0) Mean Corpuscular Volume 85 fL (79-100) Mean Corpuscular Hemoglobin 29 pg (25-35) Mean Corpuscular Hemoglobin Concent 34 g/dL (31-37) Red Cell Distribution Width 15.4 % (11.5-14.5) Platelet Count 98 x10^3/uL (140-400) Neutrophils (%) (Auto) 44 % (31-73) Lymphocytes (%) (Auto) 38 % (24-48) Monocytes (%) (Auto) 15 % (0-9) Eosinophils (%) (Auto) 2 % (0-3) Basophils (%) (Auto) 1 % (0-3) Neutrophils # (Auto) 1.7 x10^3/uL (1.8-7.7) Lymphocytes # (Auto) 1.5 x10^3/uL (1.0-4.8) Monocytes # (Auto) 0.6 x10^3/uL (0.0-1.1) Eosinophils # (Auto) 0.1 x10^3/uL (0.0-0.7) Basophils # (Auto) 0.0 x10^3/uL (0.0-0.2) Sodium Level 141 mmol/L (136-145) Potassium Level 3.9 mmol/L (3.5-5.1) Chloride Level 106 mmol/L (98-107) Carbon Dioxide Level 28 mmol/L (21-32) Anion Gap 7 (6-14) Blood Urea Nitrogen 11 mg/dL (8-26) Creatinine 1.1 mg/dL (0.7-1.3) Estimated GFR (Cockcroft-Gault) 66.4 BUN/Creatinine Ratio 10 (6-20) Glucose Level 115 mg/dL (70-99) Calcium Level 8.6 mg/dL (8.5-10.1) Total Bilirubin 0.5 mg/dL (0.2-1.0) Aspartate Amino Transf (AST/SGOT) 90 U/L (15-37) Alanine Aminotransferase (ALT/SGPT) 77 U/L (16-63) Alkaline Phosphatase 114 U/L (46-116) Total Protein 6.5 g/dL (6.4-8.2) Albumin 3.2 g/dL (3.4-5.0) Albumin/Globulin Ratio 1.0 (1.0-1.7) Test 01/03/19 10:56 Glucose (Fingerstick) 91 mg/dL (70-99) Microbiology 01/01/19 Blood Culture - Preliminary, Resulted NO GROWTH AFTER 1 DAY Medications Current Medications Sodium Chloride 1,000 ml @ 100 mls/hr Q10H IV Last administered on 01/01/19at 15:24; Start 01/01/19 at 12:24; Stop 01/01/19 at 22:23; Status DC Potassium Chloride/Sodium Chloride 1,000 ml @ 100 mls/hr Q10H IV Last administered on 01/03/19at 08:35; Start 01/01/19 at 13:00 Ondansetron HCl (Zofran) 4 mg PRN Q6HRS PRN IV NAUSEA/VOMITING Last administered on 01/01/19at 22:56; Start 01/01/19 at 12:30 Al Hydroxide/Mg Hydroxide (Mylanta Plus Xs) 30 ml PRN Q3HRS PRN PO HEARTBURN / GAS; Start 01/01/19 at 12:30 Zolpidem Tartrate (Ambien) 5 mg PRN QHS PRN PO INSOMNIA, MAY REPEAT IN 1HR Last administered on 01/02/19at 21:02; Start 01/01/19 at 12:30 Acetaminophen (Tylenol) 650 mg PRN Q6HRS PRN PO Headaches, Temp > 101.5F Last administered on 01/03/19at 08:35; Start 01/01/19 at 12:30 Magnesium Hydroxide (Milk Of Magnesia) 2,400 mg PRN Q12HR PRN PO CONSTIPATION; Start 01/01/19 at 12:30 Enoxaparin Sodium (Lovenox 40mg Syringe) 40 mg Q24H SQ Last administered on 01/01/19at 14:30; Start 01/01/19 at 13:00; Stop 01/02/19 at 17:13; Status DC Acetaminophen/ Hydrocodone Bitart (Lortab 5/325) 1 tab PRN Q6HRS PRN PO MODERATE - SEVERE PAIN Last administered on 01/01/19at 15:28; Start 01/01/19 at 13:00 Tramadol HCl (Ultram) 50 mg PRN Q6HRS PRN PO MILD PAIN 1-3 Last administered on 01/03/19at 08:35; Start 01/01/19 at 13:00 Ondansetron HCl (Zofran Odt) 4 mg Q6HRS PO Last administered on 01/03/19at 12:12; Start 01/01/19 at 13:00 Ceftriaxone Sodium (Rocephin) 2 gm 1X ONCE IVP ; Start 01/01/19 at 17:30; Stop 01/01/19 at 17:31; Status Cancel Azithromycin (Zithromax) 500 mg 1X ONCE PO ; Start 01/01/19 at 17:30; Stop 01/01/19 at 17:31; Status Cancel Doxycycline Hyclate (Vibra-Tab) 100 mg BID PO Last administered on 01/03/19at 08:35; Start 01/01/19 at 18:00 Cefepime HCl (Maxipime) 1 gm Q8HRS IVP Last administered on 01/03/19at 06:34; Start 01/01/19 at 18:00 Influenza Virus Vaccine Quadrival (Afluria Quad 2019-20 (3yr Up) Syringe) 0.5 ml ONCE ONCE VAX IM ; Start 01/01/19 at 19:00; Stop 01/01/19 at 19:01; Status UNV Nystatin (Mycostatin) 1 marion BID TP Last administered on 01/03/19at 12:12; Start 01/03/19 at 11:30 Hydroxyzine HCl (Atarax) 25 mg PRN Q6HRS PRN PO ITCHING Last administered on at 12:12; Start 01/03/19 at 11:15 Active Scripts Active Zofran (Ondansetron Hcl) 4 Mg Tablet 1 Tab PO Q6HRS Aspir 81 (Aspirin) 81 Mg Tablet. 1 Tab PO DAILY Antivert (Meclizine Hcl) 12.5 Mg Tablet 25 Mg PO TID Reported Tramadol Hcl 50 Mg Tablet 1 Tab PO PRN Q6HRS Hydrocodone-Apap 5-325 (Hydrocodone Bit/Acetaminophen) 1 Each Tablet 1 Tab PO PRN Q6HRS PRN Lisinopril 10 Mg Tablet 1 Tab PO DAILY Vitals/I & O Vital Sign - Last 24 Hours 01/02/19 01/02/19 01/02/19 01/02/19 15:00 15:07 16:09 19:00 Temp 98.2 98.0 98.2 98.0 Pulse 65 63 Resp 16 20 B/P (MAP) 130/70 (90) 120/70 (87) Pulse Ox 94 95 95 O2 Delivery Room Air Room Air Room Air Room Air 01/02/19 01/02/19 01/02/19 01/02/19 20:00 21:02 22:19 23:00 Temp 98.3 98.3 Pulse 66 Resp 20 B/P (MAP) 134/83 (100) Pulse Ox 96 O2 Delivery Room Air Room Air Room Air Room Air 01/03/19 01/03/19 01/03/19 07:00 08:35 11:00 Temp 97.9 97.8 97.9 97.8 Pulse 70 70 Resp 19 16 B/P (MAP) 132/81 (98) 125/77 (93) Pulse Ox 94 94 93 O2 Delivery Room Air Room Air Room Air Intake and Output 01/02/19 01/02/19 01/03/19 14:59 22:59 06:59 Intake Total 3600 ml 400 ml Output Total 2315 ml 1425 ml Balance 1285 ml -1025 ml DAWN POLANCO MD Jan 03, 2019 12:17
--- NOTE | 2019-01-03 13:54 | PDOC ---
SUBJECTIVE ROS No complaints , requesting normal diet OBJECTIVE Vital Signs Vital Signs Date Time Temp Pulse Resp B/P (MAP) Pulse Ox O2 Delivery O2 Flow Rate FiO2 01/03/19 11:00 97.8 70 16 125/77 (93) 93 Room Air 97.8 I & 0 Intake and Output 01/03/19 06:59 Intake Total 4000 ml Output Total 3740 ml Balance 260 ml Intake Oral 3000 ml IV Total 1000 ml Output Urine Total 3740 ml PHYSICAL EXAM Physical Exam GEN: NAD HEENT: OM moist NECK: Supple. LUNGS: Clear to auscultation HEART: S1 and S2. ABDOMEN: Obese, nontender, EXTREMITIES: No edema. SKIN: No rash NEUROLOGIC: Normal No karimi, No CVA or SP tenderness DIAGNOSIS/ASSESSMENT Assessment & Plan LAYO - pre-renal 2/2 poor PO intake Improving with IVF Lisinopril held Supportive care,daily BMP Doesnt hv to be on renal diet from our standpoint- priyanka RN ? CKD Cr 1.4 in 2014 per [facility] labs No other Interval labs available,PCP Dr Napier Nephrolithiasis - had a recent episode, follows with [place] [facility] [place]one[place] Fever. Leukopenia with bandemia initially, now with lymphocytosis. ID following Thrombocytopenia- could be sec to Infection Will sign off COMMENT/RELEVANT DATA Meds Current Medications Medications (Trade) Dose Ordered Sig/Joelle Start Time Stop Time Status Last Admin Dose Admin Acetaminophen (Tylenol) 650 mg PRN Q6HRS PRN 01/01/19 12:30 01/03/19 08:35 650 MG Acetaminophen/ Hydrocodone Bitart (Lortab 5/325) 1 tab PRN Q6HRS PRN 01/01/19 13:00 01/01/19 15:28 1 TAB Al Hydroxide/Mg Hydroxide (Mylanta Plus Xs) 30 ml PRN Q3HRS PRN 01/01/19 12:30 Azithromycin (Zithromax) 500 mg 1X ONCE 01/01/19 17:30 01/01/19 17:31 Cancel Cefepime HCl (Maxipime) 1 gm Q8HRS 01/01/19 18:00 01/03/19 06:34 1 GM Ceftriaxone Sodium (Rocephin) 2 gm 1X ONCE 01/01/19 17:30 01/01/19 17:31 Cancel Doxycycline Hyclate (Vibra-Tab) 100 mg BID 01/01/19 18:00 01/03/19 08:35 100 MG Enoxaparin Sodium (Lovenox 40mg Syringe) 40 mg Q24H 01/01/19 13:00 01/02/19 17:13 DC 01/01/19 14:30 40 MG Hydroxyzine HCl (Atarax) 25 mg PRN Q6HRS PRN 01/03/19 11:15 01/03/19 12:12 25 MG Influenza Virus Vaccine Quadrival (Afluria Quad 2019-20 (3yr Up) Syringe) 0.5 ml ONCE ONCE 01/01/19 19:00 01/01/19 19:01 UNV Magnesium Hydroxide (Milk Of Magnesia) 2,400 mg PRN Q12HR PRN 01/01/19 12:30 Nystatin (Mycostatin) 1 marion BID 01/03/19 11:30 01/03/19 12:12 1 MARION Ondansetron HCl (Zofran Odt) 4 mg Q6HRS 01/01/19 13:00 01/03/19 12:12 4 MG Ondansetron HCl (Zofran) 4 mg PRN Q6HRS PRN 01/01/19 12:30 01/01/19 22:56 4 MG Potassium Chloride/Sodium Chloride 1,000 ml @ 100 mls/hr Q10H 01/01/19 13:00 01/03/19 08:35 100 MLS/HR Sodium Chloride 1,000 ml @ 100 mls/hr Q10H 01/01/19 12:24 01/01/19 22:23 DC 01/01/19 15:24 100 MLS/HR Tramadol HCl (Ultram) 50 mg PRN Q6HRS PRN 01/01/19 13:00 01/03/19 08:35 50 MG Zolpidem Tartrate (Ambien) 5 mg PRN QHS PRN 01/01/19 12:30 01/02/19 21:02 5 MG Lab Laboratory Tests Test 01/02/19 16:27 01/02/19 20:07 01/03/19 07:14 01/03/19 08:15 Glucose (Fingerstick) 85 mg/dL (70-99) 97 mg/dL (70-99) 91 mg/dL (70-99) White Blood Count 3.8 x10^3/uL (4.0-11.0) Red Blood Count 4.69 x10^6/uL (4.30-5.70) Hemoglobin 13.4 g/dL (13.0-17.5) Hematocrit 39.7 % (39.0-53.0) Mean Corpuscular Volume 85 fL (79-100) Mean Corpuscular Hemoglobin 29 pg (25-35) Mean Corpuscular Hemoglobin Concent 34 g/dL (31-37) Red Cell Distribution Width 15.4 % (11.5-14.5) Platelet Count 98 x10^3/uL (140-400) Neutrophils (%) (Auto) 44 % (31-73) Lymphocytes (%) (Auto) 38 % (24-48) Monocytes (%) (Auto) 15 % (0-9) Eosinophils (%) (Auto) 2 % (0-3) Basophils (%) (Auto) 1 % (0-3) Neutrophils # (Auto) 1.7 x10^3/uL (1.8-7.7) Lymphocytes # (Auto) 1.5 x10^3/uL (1.0-4.8) Monocytes # (Auto) 0.6 x10^3/uL (0.0-1.1) Eosinophils # (Auto) 0.1 x10^3/uL (0.0-0.7) Basophils # (Auto) 0.0 x10^3/uL (0.0-0.2) Sodium Level 141 mmol/L (136-145) Potassium Level 3.9 mmol/L (3.5-5.1) Chloride Level 106 mmol/L (98-107) Carbon Dioxide Level 28 mmol/L (21-32) Anion Gap 7 (6-14) Blood Urea Nitrogen 11 mg/dL (8-26) Creatinine 1.1 mg/dL (0.7-1.3) Estimated GFR (Cockcroft-Gault) 66.4 BUN/Creatinine Ratio 10 (6-20) Glucose Level 115 mg/dL (70-99) Calcium Level 8.6 mg/dL (8.5-10.1) Total Bilirubin 0.5 mg/dL (0.2-1.0) Aspartate Amino Transf (AST/SGOT) 90 U/L (15-37) Alanine Aminotransferase (ALT/SGPT) 77 U/L (16-63) Alkaline Phosphatase 114 U/L (46-116) Total Protein 6.5 g/dL (6.4-8.2) Albumin 3.2 g/dL (3.4-5.0) Albumin/Globulin Ratio 1.0 (1.0-1.7) Test 01/03/19 10:56 Glucose (Fingerstick) 91 mg/dL (70-99) Results All relevant outside records, renal labs, imaging studies, telemetry/EKG's were reviewed. DODIE HAHN MD Jan 03, 2019 13:54
[2019-01-03 15:00] VITALS: BP 126/59
--- NOTE | 2019-01-03 16:54 | PDOC ---
PROGRESS NOTES Subjective He is c/o itching today and some right ear discomfort but is feeling better, labs were pending when I rounded this am but are now back and WBC is back to normal, LFTs are mildly increased Objective General: NAD, A&O Heart: RRR Lungs: CTA Abd: soft and non tender Ext: no C/C/E Skin: difficult to see rash of back and posterior legs Vital Signs Vital Signs Date Time Temp Pulse Resp B/P (MAP) Pulse Ox O2 Delivery O2 Flow Rate FiO2 01/03/19 15:56 19 94 Room Air 01/03/19 15:00 97.6 72 126/59 (81) 97.6 I & O Intake and Output 01/03/19 06:59 Intake Total 4000 ml Output Total 3740 ml Balance 260 ml Intake Oral 3000 ml IV Total 1000 ml Output Urine Total 3740 ml Assessment and Plan sepsis -clinically improving - IV abx, ID following LAYO - resolved, renal following, holding lisinopril, avoiding NSAIDS abnormal Lfts - stable, monitor Rheumatoid factor positive OA hx of PMR hx of Lyme arthritis - 1989 glucose intolerance low testosterone on replacement Vitamin D def leukopenia - resolved, reactive to sepsis- Heme consult determined no worry for leukemia Manuel HOLLAND MD Jan 03, 2019 16:54
[2019-01-03 19:00] VITALS: BP 112/76
[2019-01-03 21:07] LABS: ANA INTERP Positive (.)
[2019-01-03 23:00] VITALS: BP 136/79
[2019-01-03 23:08] LABS: ROCK MTN SF IGG Negative (Negative); ROCKY MTN SF IGM 0.23 index (0.00-0.89)
[2019-01-04 03:00] VITALS: BP 119/75
[2019-01-04] MEDS: CEFEPIME HCL IV Push 1 GM VIAL. IVP SCH ×3 (05:50→21:55)
[2019-01-04] MEDS: ONDANSETRON ODT 4 MG TAB.RAPDIS. PO SCH ×3 (05:54→18:00)
[2019-01-04 06:11] LABS: ALBUMIN 2.9 g/dL (3.4-5.0); ALBUMIN/GLOBULIN RATIO 0.9 (1.0-1.7); CALCIUM 8.4 mg/dL (8.5-10.1); CREATININE 1.1 mg/dL (0.7-1.3); GFR 66.4; POTASSIUM 4.3 mmol/L (3.5-5.1); TOTAL BILIRUBIN 0.3 mg/dL (0.2-1.0)
[2019-01-04 06:54] LABS: BASO % 1 % (0-3); EOS # 0.2 x10^3/uL (0.0-0.7); EOS % 4 % (0-3); HEMATOCRIT 37.8 % (39.0-53.0); HEMOGLOBIN 12.8 g/dL (13.0-17.5); LYMPH # 2.8 x10^3/uL (1.0-4.8); LYMPH % 66 % (24-48); MEAN CORPUSCULAR HEMOGLOBIN 29 pg (25-35); MEAN CORPUSCULAR HGB CONC 34 g/dL (31-37); MEAN CORPUSCULAR VOLUME 85 fL (79-100); MONO # 0.5 x10^3/uL (0.0-1.1); MONO % 12 % (0-9); NEUT # 0.7 x10^3/uL (1.8-7.7); NEUT % 17 % (31-73); PLATELET COUNT 126 x10^3/uL (140-400); RED BLOOD COUNT 4.47 x10^6/uL (4.30-5.70); RED CELL DISTRIBUTION WIDTH 15.5 % (11.5-14.5); WHITE BLOOD COUNT 4.2 x10^3/uL (4.0-11.0)
[2019-01-04 07:00] VITALS: BP 125/71
[2019-01-04] MEDS: DOXYCYCLINE HYCLATE 100 MG TABLET PO SCH ×2 (08:39→20:16)
[2019-01-04] MEDS: NYSTATIN 100,000 UNIT/GM TOPICAL CREAM 15GM TUBE. TP SCH ×2 (08:40→20:16)
[2019-01-04] MEDS: traMADol 50 MG TABLET PO PRN ×2 (08:45→18:34)
[2019-01-04] MEDS: ACETAMINOPHEN 325 MG TABLET. PO PRN ×2 (08:45→18:34)
[2019-01-04 10:06] LABS: % ATYL 5 % (0-0); % BANDS 2 % (0-9); % EOS 2 % (0-5); % LYMPHS 56 % (24-48); % MONOS 19 % (0-10); % SEGS 16 % (35-66); ANISOCYTOSIS PRESENT; PLT ESTIMATE DECREASED (ADEQUATE)
[2019-01-04 10:07] LABS: POIKILOCYTOSIS PRESENT
[2019-01-04 10:08] LABS: OVALOCYTES FEW
--- NOTE | 2019-01-04 10:24 | PDOC ---
Infectious Disease Note Subjective Subjective Over all feeling better Some generalized weakness from laying around c/o persistent COOPER, "never goes away" > 2 months. less intense with pain med COOPER primarily located right temporal/frontal area Several episodes of fleeting blurriness about 2 weeks ago Denies photophobia/phonophobia, confusion, dizziness, N/V/F/C/S/aches ROS ROS per HPI Vital Sign Vital Signs Vital Signs Date Time Temp Pulse Resp B/P (MAP) Pulse Ox O2 Delivery O2 Flow Rate FiO2 01/04/19 08:00 Room Air 01/04/19 07:00 97.9 61 18 125/71 (89) 100 97.9 Physical Exam PHYSICAL EXAM Propped up in bed, alert, relaxed appearance HEENT: Pupils equal, Oral cavity clear, dentures in place NECK: Supple. Good range of motion. LUNGS: Clear to auscultation bilaterally. HEART: S1 and S2. ABDOMEN: Obese, soft, nontender, and nondistended with positive bowel sounds. EXTREMITIES: Without clubbing, cyanosis, or gross edema. SKIN: Without generalized rash. He does have some healing scratches here and there. There are some scabs. Joints are not grossly inflamed. back with probable yeast developing NEUROLOGIC: Alert, nonfocal. Labs Lab Laboratory Tests Test 01/03/19 10:56 01/03/19 16:28 01/03/19 20:59 01/04/19 05:40 Glucose (Fingerstick) 91 mg/dL (70-99) 93 mg/dL (70-99) 107 mg/dL (70-99) White Blood Count 4.2 x10^3/uL (4.0-11.0) Red Blood Count 4.47 x10^6/uL (4.30-5.70) Hemoglobin 12.8 g/dL (13.0-17.5) Hematocrit 37.8 % (39.0-53.0) Mean Corpuscular Volume 85 fL (79-100) Mean Corpuscular Hemoglobin 29 pg (25-35) Mean Corpuscular Hemoglobin Concent 34 g/dL (31-37) Red Cell Distribution Width 15.5 % (11.5-14.5) Platelet Count 126 x10^3/uL (140-400) Neutrophils (%) (Auto) 17 % (31-73) Lymphocytes (%) (Auto) 66 % (24-48) Monocytes (%) (Auto) 12 % (0-9) Eosinophils (%) (Auto) 4 % (0-3) Basophils (%) (Auto) 1 % (0-3) Neutrophils # (Auto) 0.7 x10^3/uL (1.8-7.7) Lymphocytes # (Auto) 2.8 x10^3/uL (1.0-4.8) Monocytes # (Auto) 0.5 x10^3/uL (0.0-1.1) Eosinophils # (Auto) 0.2 x10^3/uL (0.0-0.7) Basophils # (Auto) 0.0 x10^3/uL (0.0-0.2) Segmented Neutrophils % 16 % (35-66) Band Neutrophils % 2 % (0-9) Lymphocytes % 56 % (24-48) Atypical Lymphocytes % (Manual) 5 % (0-0) Monocytes % 19 % (0-10) Eosinophils % 2 % (0-5) Platelet Estimate Decreased (ADEQUATE) Poikilocytosis Present Anisocytosis Present Ovalocytes Few Sodium Level 142 mmol/L (136-145) Potassium Level 4.3 mmol/L (3.5-5.1) Chloride Level 108 mmol/L (98-107) Carbon Dioxide Level 28 mmol/L (21-32) Anion Gap 6 (6-14) Blood Urea Nitrogen 13 mg/dL (8-26) Creatinine 1.1 mg/dL (0.7-1.3) Estimated GFR (Cockcroft-Gault) 66.4 BUN/Creatinine Ratio 12 (6-20) Glucose Level 86 mg/dL (70-99) Calcium Level 8.4 mg/dL (8.5-10.1) Total Bilirubin 0.3 mg/dL (0.2-1.0) Aspartate Amino Transf (AST/SGOT) 120 U/L (15-37) Alanine Aminotransferase (ALT/SGPT) 110 U/L (16-63) Alkaline Phosphatase 132 U/L (46-116) Total Protein 6.0 g/dL (6.4-8.2) Albumin 2.9 g/dL (3.4-5.0) Albumin/Globulin Ratio 0.9 (1.0-1.7) Test 01/04/19 07:11 Glucose (Fingerstick) 79 mg/dL (70-99) Micro Microbiology 01/01/19 Blood Culture - Preliminary, Resulted NO GROWTH AFTER 2 DAYS Objective Assessment Fever - better Leukopenia with bandemia - better Transaminitis Lymphocytosis - better Cat scratch Tick bites and bug bite - Lyme - neg Headache Plan Plan of Care Could be viral/tick - cat scratch - Bartonella or Pasturella F/u RMSF/Ehrlichia/Bartonella/[place]/HSV/EBV Cont Doxy and Cefepime F/u labs and cults Nystatin Monitor right ear - may need drops if worsens D/w Acquire labs from [facility] from 12/25 Attending Co-Sign The patient was seen and interviewed as well as examined at the bedside. The chart was reviewed. The case was discussed. Agree with the plan of care. PINKY KUO APRN Jan 04, 2019 10:24 VIKI MARCANO MD Jan 04, 2019 12:08
[2019-01-04 11:00] VITALS: BP 128/69
[2019-01-04] MEDS: hydrOXYzine 25 MG TABLET PO PRN (11:32)
--- NOTE | 2019-01-04 14:19 | PDOC ---
PROGRESS NOTES Subjective He is still noticing headache, rash of posterior left hamstring area worsened but not of back. LFTs up slightly, ISIDORO +, CMV -, rickettsial titer -, EBV -, differential of left shift back with atypical lymphs, fever resolved, leukopenia resolved Objective Afebrile General: NAD, A&O Heart: RRR Lungs: CTA Abd: soft, no HSM or tenderness, normal bowel sounds Ext: rash of posterior left thigh, no C/C/E Vital Signs Vital Signs Date Time Temp Pulse Resp B/P (MAP) Pulse Ox O2 Delivery O2 Flow Rate FiO2 01/04/19 11:00 97.4 54 16 128/69 (88) 94 Room Air 97.4 I & O Intake and Output 01/04/19 06:59 Intake Total 2960 ml Output Total 4325 ml Balance -1365 ml Intake Oral 2960 ml Output Urine Total 4325 ml Assessment and Plan sepsis -clinically improving - cultures negative, IV and oral abx, ID following LAYO - resolved, renal following, holding lisinopril, avoiding NSAIDS abnormal Lfts - worsening, check acute hepatitis profile (doubtful but requesting), monitor, may be from antibiotic Rheumatoid factor positive but sed rate normal ISIDORO + OA hx of Lyme arthritis - 1989 glucose intolerance - sugars have been normal so will stop fingersticks low testosterone on replacement Vitamin D def leukopenia - resolved, but right shift on diff today headache - persistent - will check CT head since MRI cannot be done rash left thigh - photo taken Manuel HOLLAND MD Jan 04, 2019 14:19
[2019-01-04 15:00] VITALS: BP 120/73
--- NOTE | 2019-01-04 17:13 | RAD ---
EXAM: CT Head without IV contrast CLINICAL HISTORY: Persistent headaches, fevers COMPARISON: None. TECHNIQUE: Routine CT of the head without contrast. Soft tissues and bone windows were reviewed. PQRS compliance statement - One or more of the following individualized dose reduction techniques were utilized for this study: 1. Automated exposure control 2. Adjustment of the mA and/or kV according to patient size 3. Use of iterative reconstruction technique FINDINGS: There is no evidence of hemorrhage, mass or extra-axial fluid collection. Kothari-white differentiation is maintained with no evidence of edema. There is no mass effect or shift of the intracranial structures. The ventricles, basilar cisterns and cortical sulci are normal in size and configuration for the patients stated age. The cerebellum and brainstem are unremarkable. The calvarium demonstrates no evidence of fracture or focal lesion. There is normal aeration of the visualized paranasal sinuses and mastoid air cells. The visualized portions of the orbits are normal. IMPRESSION: No evidence for acute intracranial process. Electronically signed by: Michel Krishnamurthy MD (01/04/2019 5:10 PM) [facility] [place]
[2019-01-04 19:00] VITALS: BP 131/88
[2019-01-04] MEDS: ZOLPIDEM 5 MG TABLET. PO PRN (21:55)
[2019-01-04 23:00] VITALS: BP 114/61
[2019-01-05 03:00] VITALS: BP 134/80
[2019-01-05] MEDS: CEFEPIME HCL IV Push 1 GM VIAL. IVP SCH (05:37)
[2019-01-05] MEDS: ONDANSETRON ODT 4 MG TAB.RAPDIS. PO SCH ×5 (05:38→23:05)
[2019-01-05 06:30] LABS: BASO % 0 % (0-3); EOS # 0.2 x10^3/uL (0.0-0.7); EOS % 3 % (0-3); HEMATOCRIT 38.7 % (39.0-53.0); HEMOGLOBIN 13.1 g/dL (13.0-17.5); LYMPH # 4.1 x10^3/uL (1.0-4.8); LYMPH % 62 % (24-48); MEAN CORPUSCULAR HEMOGLOBIN 29 pg (25-35); MEAN CORPUSCULAR HGB CONC 34 g/dL (31-37); MEAN CORPUSCULAR VOLUME 84 fL (79-100); MONO # 0.6 x10^3/uL (0.0-1.1); MONO % 9 % (0-9); NEUT # 1.6 x10^3/uL (1.8-7.7); NEUT % 25 % (31-73); PLATELET COUNT 190 x10^3/uL (140-400); RED BLOOD COUNT 4.59 x10^6/uL (4.30-5.70); RED CELL DISTRIBUTION WIDTH 15.5 % (11.5-14.5); WHITE BLOOD COUNT 6.6 x10^3/uL (4.0-11.0)
[2019-01-05 06:49] LABS: DIRECT BILIRUBIN 0.1 mg/dL (0.0-0.2); TOTAL BILIRUBIN 0.3 mg/dL (0.2-1.0); TOTAL PROTEIN 6.3 g/dL (6.4-8.2)
[2019-01-05 07:00] VITALS: BP 132/81
[2019-01-05] MEDS: DOXYCYCLINE HYCLATE 100 MG TABLET PO SCH ×2 (08:44→20:52)
[2019-01-05] MEDS: NYSTATIN 100,000 UNIT/GM TOPICAL CREAM 15GM TUBE. TP SCH ×2 (08:44→21:00)
[2019-01-05] MEDS: ACETAMINOPHEN 325 MG TABLET. PO PRN ×2 (08:45→19:24)
[2019-01-05] MEDS: traMADol 50 MG TABLET PO PRN ×2 (08:45→19:24)
--- NOTE | 2019-01-05 10:37 | PDOC ---
PROGRESS NOTES Subjective He still has headache, no neck stiffness, CT brain was unremarkable, sinuses are clear, Liver enzymes similar to yesterday WBC normal but right shift persists with increased monos and lymphocytes, rash similar of left leg Objective Afebrile General: A&O, comfortable Heart: RRR no M Lungs: CTAB Abd: soft, non tender, no mass Ext: no edema, rash per photo left leg Vital Signs Vital Signs Date Time Temp Pulse Resp B/P (MAP) Pulse Ox O2 Delivery O2 Flow Rate FiO2 01/05/19 07:00 98.1 70 14 132/81 (98) 100 Room Air 98.1 I & O Intake and Output 01/05/19 07:00 Intake Total 2660 ml Output Total 3100 ml Balance -440 ml Intake Oral 1660 ml IV Total 1000 ml Output Urine Total 3100 ml Assessment and Plan sepsis -clinically improving - cultures negative, IV and oral abx, ID following LAYO - resolved, renal following, holding lisinopril, avoiding NSAIDS abnormal Lfts - worsening, check acute hepatitis profile (doubtful but requesting, results pending), monitor, may be from antibiotic Rheumatoid factor positive but sed rate normal ISIDORO + - speckled OA - no acute synovitis hx of Lyme arthritis - 1989 glucose intolerance - sugars have been normal so will stop fingersticks low testosterone on replacement Vitamin D def leukopenia - resolved, but right shift persists headache - persistent - CT head unremarkable rash left thigh - photo taken Manuel HOLLAND MD Jan 05, 2019 10:37
[2019-01-05 11:00] VITALS: BP 122/75
--- NOTE | 2019-01-05 11:04 | PDOC ---
Infectious Disease Note Subjective Subjective Over all feeling the same as yesterday + headache, no sig change + rash back of thighs Denies photophobia/phonophobia, confusion, dizziness, N/V/F/C/S/aches ROS ROS per HPI Vital Sign Vital Signs Vital Signs Date Time Temp Pulse Resp B/P (MAP) Pulse Ox O2 Delivery O2 Flow Rate FiO2 01/05/19 08:00 Room Air 01/05/19 07:00 98.1 70 14 132/81 (98) 100 98.1 Physical Exam PHYSICAL EXAM GENERAL: Propped up in bed, alert, smiling HEENT: Pupils equal, Oral cavity clear, dentures in place NECK: Supple. Good range of motion. LUNGS: Clear to auscultation bilaterally. HEART: S1 and S2. ABDOMEN: Obese, soft, nontender EXTREMITIES: Without clubbing, cyanosis, or gross edema. SKIN: Rash posterior thighs, bilaterally NEUROLOGIC: Alert, nonfocal. Labs Lab Laboratory Tests Test 01/04/19 11:33 01/04/19 16:45 01/04/19 21:08 01/04/19 21:12 Glucose (Fingerstick) 80 mg/dL (70-99) 90 mg/dL (70-99) 168 mg/dL (70-99) 119 mg/dL (70-99) Test 01/05/19 05:10 01/05/19 07:18 White Blood Count 6.6 x10^3/uL (4.0-11.0) Red Blood Count 4.59 x10^6/uL (4.30-5.70) Hemoglobin 13.1 g/dL (13.0-17.5) Hematocrit 38.7 % (39.0-53.0) Mean Corpuscular Volume 84 fL (79-100) Mean Corpuscular Hemoglobin 29 pg (25-35) Mean Corpuscular Hemoglobin Concent 34 g/dL (31-37) Red Cell Distribution Width 15.5 % (11.5-14.5) Platelet Count 190 x10^3/uL (140-400) Neutrophils (%) (Auto) 25 % (31-73) Lymphocytes (%) (Auto) 62 % (24-48) Monocytes (%) (Auto) 9 % (0-9) Eosinophils (%) (Auto) 3 % (0-3) Basophils (%) (Auto) 0 % (0-3) Neutrophils # (Auto) 1.6 x10^3/uL (1.8-7.7) Lymphocytes # (Auto) 4.1 x10^3/uL (1.0-4.8) Monocytes # (Auto) 0.6 x10^3/uL (0.0-1.1) Eosinophils # (Auto) 0.2 x10^3/uL (0.0-0.7) Basophils # (Auto) 0.0 x10^3/uL (0.0-0.2) Total Bilirubin 0.3 mg/dL (0.2-1.0) Direct Bilirubin 0.1 mg/dL (0.0-0.2) Aspartate Amino Transf (AST/SGOT) 117 U/L (15-37) Alanine Aminotransferase (ALT/SGPT) 136 U/L (16-63) Alkaline Phosphatase 135 U/L (46-116) Total Protein 6.3 g/dL (6.4-8.2) Albumin 3.0 g/dL (3.4-5.0) Glucose (Fingerstick) 83 mg/dL (70-99) CT chest No evidence for acute intracranial process. Micro Microbiology 01/01/19 Blood Culture - Preliminary, Resulted NO GROWTH AFTER 2 DAYS Objective Assessment Fever - better Leukopenia with bandemia - better Transaminitis Lymphocytosis - better Cat scratch Tick bites and bug bite - Lyme - neg Headache Plan Plan of Care Could be viral/tick - cat scratch - Bartonella or Pasturella F/u RMSF/Ehrlichia/Bartonella/[place]/HSV Hep panel added per primary Cont Doxy and Cefepime Nystatin D/w Attending Co-Sign The patient was seen and interviewed as well as examined at the bedside. The chart was reviewed. The case was discussed. Agree with the plan of care. PINKY KUO APRN Jan 05, 2019 11:04 VIKI MARCANO MD Jan 05, 2019 11:07
[2019-01-05 15:00] VITALS: BP 149/90
[2019-01-05 19:00] VITALS: BP 134/79
[2019-01-05] MEDS: ZOLPIDEM 5 MG TABLET. PO PRN (20:52)
[2019-01-05 23:00] VITALS: BP 113/68
[2019-01-06 03:00] VITALS: BP 126/72
[2019-01-06] MEDS: ONDANSETRON ODT 4 MG TAB.RAPDIS. PO SCH ×2 (06:00→13:19)
[2019-01-06 07:00] VITALS: BP 141/86
[2019-01-06 07:42] LABS: BASO % 0 % (0-3); EOS # 0.3 x10^3/uL (0.0-0.7); EOS % 3 % (0-3); HEMOGLOBIN 13.4 g/dL (13.0-17.5); LYMPH % 59 % (24-48); MEAN CORPUSCULAR HEMOGLOBIN 28 pg (25-35); MEAN CORPUSCULAR HGB CONC 33 g/dL (31-37); MEAN CORPUSCULAR VOLUME 85 fL (79-100); MONO # 0.7 x10^3/uL (0.0-1.1); MONO % 9 % (0-9); NEUT # 2.5 x10^3/uL (1.8-7.7); NEUT % 29 % (31-73); PLATELET COUNT 242 x10^3/uL (140-400); RED BLOOD COUNT 4.74 x10^6/uL (4.30-5.70); RED CELL DISTRIBUTION WIDTH 15.1 % (11.5-14.5); WHITE BLOOD COUNT 8.5 x10^3/uL (4.0-11.0)
[2019-01-06 07:56] LABS: ALBUMIN 3.1 g/dL (3.4-5.0); ALBUMIN/GLOBULIN RATIO 0.9 (1.0-1.7); CALCIUM 8.9 mg/dL (8.5-10.1); CREATININE 1.1 mg/dL (0.7-1.3); GFR 66.4; POTASSIUM 4.1 mmol/L (3.5-5.1); TOTAL BILIRUBIN 0.3 mg/dL (0.2-1.0); TOTAL PROTEIN 6.4 g/dL (6.4-8.2)
[2019-01-06] MEDS: DOXYCYCLINE HYCLATE 100 MG TABLET PO SCH (08:40)
[2019-01-06] MEDS: NYSTATIN 100,000 UNIT/GM TOPICAL CREAM 15GM TUBE. TP SCH (08:41)
[2019-01-06] MEDS: traMADol 50 MG TABLET PO PRN (08:50)
--- NOTE | 2019-01-06 09:02 | NUR ---
SW following pt for dc planning. Chart reviewed and pt lives at home with spouse. PT/OT recommends home independent. ID following. SW will continue to follow pending dc needs.
--- NOTE | 2019-01-06 09:09 | PDOC ---
PROGRESS NOTES Subjective Subjective HPI - f/u of Leukopenia ROS - no fever Objective Objective Vital Signs Date Time Temp Pulse Resp B/P (MAP) Pulse Ox O2 Delivery O2 Flow Rate FiO2 01/06/19 08:50 20 94 Room Air 01/06/19 07:00 97.7 67 141/86 (104) 97.7 l Intake and Output 01/06/19 07:00 Intake Total 2130 ml Output Total 3475 ml Balance -1345 ml Intake Oral 2130 ml Output Urine Total 3475 ml # Voids 1 # Bowel Movements 1 Physical Exam Heart: Normal S1, Normal S2 General: Alert, Oriented X3 Lungs: Clear to auscultation Neuro: Normal speech Psych/Mental Status: Mental status NL Assessment Assessment Problems Medical Problems: (1) Fever Status: Acute (2) Glucose intolerance Status: Chronic (3) OA (osteoarthritis) Status: Chronic IMPRESSION AND PLAN: 1. Leukopenia with elevated bands and underlying fever is suggestive of reactive leukopenia from underlying infection. He has evidence of 29% bands and 16% monocytes. However, the absolute monocyte count is normal at 0.3 and there is no evidence of blasts. Hence, it is unlikely that he has a primary bone marrow disorder such as leukemia. I suspect that this is a reactive leukopenia. I would consult Infectious Diseases. I will continue to monitor CBC. If there is no improvement or if there is any development of blasts, then I will proceed with a bone marrow biopsy. I discussed with Dr. Jared Napier. I discussed with the patient and his . WBC better at 3.8 on 01/03/19. WBC normal at 8.5 on 01/06/19. Elevated lymphs/monos due to probable viral infection, f/u with me in 1 week. 2. Thrombocytopenia, which I suspect is reactive thrombocytopenia from underlying infection. Continue to monitor. Plt better at 98 on 01/03/19. Plt 242 on 01/06/19. 3. Fever. Consulted ID. I d/w Dr Harvey. Comment Review of Relevant I have reviewed the following items july (where applicable) has been applied. Labs Laboratory Tests Test 01/04/19 11:33 01/04/19 16:45 01/04/19 21:08 01/04/19 21:12 Glucose (Fingerstick) 80 mg/dL (70-99) 90 mg/dL (70-99) 168 mg/dL (70-99) 119 mg/dL (70-99) Test 01/05/19 05:10 01/05/19 07:18 01/05/19 20:47 01/06/19 07:00 White Blood Count 6.6 x10^3/uL (4.0-11.0) 8.5 x10^3/uL (4.0-11.0) Red Blood Count 4.59 x10^6/uL (4.30-5.70) 4.74 x10^6/uL (4.30-5.70) Hemoglobin 13.1 g/dL (13.0-17.5) 13.4 g/dL (13.0-17.5) Hematocrit 38.7 % (39.0-53.0) 40.0 % (39.0-53.0) Mean Corpuscular Volume 84 fL (79-100) 85 fL (79-100) Mean Corpuscular Hemoglobin 29 pg (25-35) 28 pg (25-35) Mean Corpuscular Hemoglobin Concent 34 g/dL (31-37) 33 g/dL (31-37) Red Cell Distribution Width 15.5 % (11.5-14.5) 15.1 % (11.5-14.5) Platelet Count 190 x10^3/uL (140-400) 242 x10^3/uL (140-400) Neutrophils (%) (Auto) 25 % (31-73) 29 % (31-73) Lymphocytes (%) (Auto) 62 % (24-48) 59 % (24-48) Monocytes (%) (Auto) 9 % (0-9) 9 % (0-9) Eosinophils (%) (Auto) 3 % (0-3) 3 % (0-3) Basophils (%) (Auto) 0 % (0-3) 0 % (0-3) Neutrophils # (Auto) 1.6 x10^3/uL (1.8-7.7) 2.5 x10^3/uL (1.8-7.7) Lymphocytes # (Auto) 4.1 x10^3/uL (1.0-4.8) 5.0 x10^3/uL (1.0-4.8) Monocytes # (Auto) 0.6 x10^3/uL (0.0-1.1) 0.7 x10^3/uL (0.0-1.1) Eosinophils # (Auto) 0.2 x10^3/uL (0.0-0.7) 0.3 x10^3/uL (0.0-0.7) Basophils # (Auto) 0.0 x10^3/uL (0.0-0.2) 0.0 x10^3/uL (0.0-0.2) Total Bilirubin 0.3 mg/dL (0.2-1.0) 0.3 mg/dL (0.2-1.0) Direct Bilirubin 0.1 mg/dL (0.0-0.2) Aspartate Amino Transf (AST/SGOT) 117 U/L (15-37) 69 U/L (15-37) Alanine Aminotransferase (ALT/SGPT) 136 U/L (16-63) 107 U/L (16-63) Alkaline Phosphatase 135 U/L (46-116) 117 U/L (46-116) Total Protein 6.3 g/dL (6.4-8.2) 6.4 g/dL (6.4-8.2) Albumin 3.0 g/dL (3.4-5.0) 3.1 g/dL (3.4-5.0) Glucose (Fingerstick) 83 mg/dL (70-99) 116 mg/dL (70-99) Sodium Level 143 mmol/L (136-145) Potassium Level 4.1 mmol/L (3.5-5.1) Chloride Level 107 mmol/L (98-107) Carbon Dioxide Level 30 mmol/L (21-32) Anion Gap 6 (6-14) Blood Urea Nitrogen 14 mg/dL (8-26) Creatinine 1.1 mg/dL (0.7-1.3) Estimated GFR (Cockcroft-Gault) 66.4 BUN/Creatinine Ratio 13 (6-20) Glucose Level 86 mg/dL (70-99) Calcium Level 8.9 mg/dL (8.5-10.1) Albumin/Globulin Ratio 0.9 (1.0-1.7) Test 01/06/19 07:27 Glucose (Fingerstick) 86 mg/dL (70-99) Laboratory Tests Test 01/05/19 20:47 01/06/19 07:00 01/06/19 07:27 Glucose (Fingerstick) 116 mg/dL (70-99) 86 mg/dL (70-99) White Blood Count 8.5 x10^3/uL (4.0-11.0) Red Blood Count 4.74 x10^6/uL (4.30-5.70) Hemoglobin 13.4 g/dL (13.0-17.5) Hematocrit 40.0 % (39.0-53.0) Mean Corpuscular Volume 85 fL (79-100) Mean Corpuscular Hemoglobin 28 pg (25-35) Mean Corpuscular Hemoglobin Concent 33 g/dL (31-37) Red Cell Distribution Width 15.1 % (11.5-14.5) Platelet Count 242 x10^3/uL (140-400) Neutrophils (%) (Auto) 29 % (31-73) Lymphocytes (%) (Auto) 59 % (24-48) Monocytes (%) (Auto) 9 % (0-9) Eosinophils (%) (Auto) 3 % (0-3) Basophils (%) (Auto) 0 % (0-3) Neutrophils # (Auto) 2.5 x10^3/uL (1.8-7.7) Lymphocytes # (Auto) 5.0 x10^3/uL (1.0-4.8) Monocytes # (Auto) 0.7 x10^3/uL (0.0-1.1) Eosinophils # (Auto) 0.3 x10^3/uL (0.0-0.7) Basophils # (Auto) 0.0 x10^3/uL (0.0-0.2) Sodium Level 143 mmol/L (136-145) Potassium Level 4.1 mmol/L (3.5-5.1) Chloride Level 107 mmol/L (98-107) Carbon Dioxide Level 30 mmol/L (21-32) Anion Gap 6 (6-14) Blood Urea Nitrogen 14 mg/dL (8-26) Creatinine 1.1 mg/dL (0.7-1.3) Estimated GFR (Cockcroft-Gault) 66.4 BUN/Creatinine Ratio 13 (6-20) Glucose Level 86 mg/dL (70-99) Calcium Level 8.9 mg/dL (8.5-10.1) Total Bilirubin 0.3 mg/dL (0.2-1.0) Aspartate Amino Transf (AST/SGOT) 69 U/L (15-37) Alanine Aminotransferase (ALT/SGPT) 107 U/L (16-63) Alkaline Phosphatase 117 U/L (46-116) Total Protein 6.4 g/dL (6.4-8.2) Albumin 3.1 g/dL (3.4-5.0) Albumin/Globulin Ratio 0.9 (1.0-1.7) Microbiology 01/01/19 Blood Culture - Preliminary, Resulted NO GROWTH AFTER 4 DAYS Medications Current Medications Sodium Chloride 1,000 ml @ 100 mls/hr Q10H IV Last administered on 01/01/19at 15:24; Start 01/01/19 at 12:24; Stop 01/01/19 at 22:23; Status DC Potassium Chloride/Sodium Chloride 1,000 ml @ 100 mls/hr Q10H IV Last administered on 01/04/19at 04:58; Start 01/01/19 at 13:00; Stop 01/04/19 at 1 4:02; Status DC Ondansetron HCl (Zofran) 4 mg PRN Q6HRS PRN IV NAUSEA/VOMITING Last administered on 01/01/19at 22:56; Start 01/01/19 at 12:30 Al Hydroxide/Mg Hydroxide (Mylanta Plus Xs) 30 ml PRN Q3HRS PRN PO HEARTBURN / GAS; Start 01/01/19 at 12:30 Zolpidem Tartrate (Ambien) 5 mg PRN QHS PRN PO INSOMNIA, MAY REPEAT IN 1HR Last administered on 01/05/19at 20:52; Start 01/01/19 at 12:30 Acetaminophen (Tylenol) 650 mg PRN Q6HRS PRN PO Headaches, Temp > 101.5F Last administered on 01/05/19at 19:24; Start 01/01/19 at 12:30 Magnesium Hydroxide (Milk Of Magnesia) 2,400 mg PRN Q12HR PRN PO CONSTIPATION; Start 01/01/19 at 12:30 Enoxaparin Sodium (Lovenox 40mg Syringe) 40 mg Q24H SQ Last administered on 01/01/19 14:30; Start 01/01/19 at 13:00; Stop 01/02/19 at 17:13; Status DC Acetaminophen/ Hydrocodone Bitart (Lortab 5/325) 1 tab PRN Q6HRS PRN PO MODERATE - SEVERE PAIN Last administered on 01/01/19 15:28; Start 01/01/19 at 13:00 Tramadol HCl (Ultram) 50 mg PRN Q6HRS PRN PO MILD PAIN 1-3 Last administered on 01/06/19 08:50; Start 01/01/19 at 13:00 Ondansetron HCl (Zofran Odt) 4 mg Q6HRS PO Last administered on 01/03/19 17:42; Start 01/01/19 at 13:00 Ceftriaxone Sodium (Rocephin) 2 gm 1X ONCE IVP ; Start 01/01/19 at 17:30; Stop 01/01/19 at 17:31; Status Cancel Azithromycin (Zithromax) 500 mg 1X ONCE PO ; Start 01/01/19 at 17:30; Stop 01/01/19 at 17:31; Status Cancel Doxycycline Hyclate (Vibra-Tab) 100 mg BID PO Last administered on 01/06/19 08:50; Start 01/01/19 at 18:00 Cefepime HCl (Maxipime) 1 gm Q8HRS IVP Last administered on 01/05/19 05:37; Start 01/01/19 at 18:00; Stop 01/05/19 at 11:08; Status DC Influenza Virus Vaccine Quadrival (Afluria Quad 2019-20 (3yr Up) Syringe) 0.5 ml ONCE ONCE VAX IM ; Start 01/01/19 at 19:00; Stop 01/01/19 at 19:01; Status UNV Nystatin (Mycostatin) 1 marion BID TP Last administered on 01/05/19 08:45; Start 01/03/19 at 11:30 Hydroxyzine HCl (Atarax) 25 mg PRN Q6HRS PRN PO ITCHING Last administered on 01/04/19at 11:32; Start 01/03/19 at 11:15 Active Scripts Active Zofran (Ondansetron Hcl) 4 Mg Tablet 1 Tab PO Q6HRS Aspir 81 (Aspirin) 81 Mg Tablet. 1 Tab PO DAILY Antivert (Meclizine Hcl) 12.5 Mg Tablet 25 Mg PO TID Reported Tramadol Hcl 50 Mg Tablet 1 Tab PO PRN Q6HRS Hydrocodone-Apap 5-325 (Hydrocodone Bit/Acetaminophen) 1 Each Tablet 1 Tab PO PRN Q6HRS PRN Lisinopril 10 Mg Tablet 1 Tab PO DAILY Vitals/I & O Vital Sign - Last 24 Hours 01/05/19 01/05/19 01/05/19 01/05/19 11:00 15:00 19:00 19:24 Temp 98.3 98.3 98.6 98.3 98.3 98.6 Pulse 60 72 76 Resp 16 16 20 16 B/P (MAP) 122/75 (91) 149/90 (109) 134/79 (97) Pulse Ox 94 95 95 95 O2 Delivery Room Air Room Air Room Air Room Air 01/05/19 01/05/19 01/05/19 01/06/19 20:08 22:31 23:00 03:00 Temp 98.6 98.3 98.6 98.3 Pulse 71 61 Resp 16 20 20 B/P (MAP) 113/68 (83) 126/72 (90) Pulse Ox 95 95 97 O2 Delivery Room Air Room Air Room Air Room Air 01/06/19 01/06/19 07:00 08:50 Temp 97.7 97.7 Pulse 67 Resp 18 20 B/P (MAP) 141/86 (104) Pulse Ox 96 94 O2 Delivery Room Air Room Air Intake and Output 01/05/19 01/05/19 01/06/19 15:00 23:00 07:00 Intake Total 840 ml 490 ml 800 ml Output Total 2125 ml 1100 ml 250 ml Balance -1285 ml -610 ml 550 ml ADWN POLANCO MD Jan 06, 2019 09:09
[2019-01-06 10:47] VITALS: BP 130/77
[2019-01-06] MEDS ORDERED: DOXY100T PO (12:43)
[2019-01-06] MEDS ORDERED: ZOLP5TAB PO (12:54)
--- NOTE | 2019-01-06 13:00 | NUR ---
DISCHARGE INSTRUCTIONS GIVEN, QUESTIONS AND CONCERNS ANSWERED, PATIENT AND AT THE BEDSIDE VERBALIZED UNDERSTANDING OF DISCHARGE INFORMATION INCLUDING TAKING ALL MEDICATIONS INSTRUCTED AND FOLLOWING UP WITH HER PRIMARY PROVIDER IN 1-2 WEEKS.
[2019-01-06 14:14] LABS: WEST NILE IGG Negative (Negative); WEST NILE IGM Negative (Negative)
[2019-01-06 16:09] LABS: B HENSELAE IGG Negative titer (Neg:<1:320); B QUINTANA IGG Negative titer (Neg:<1:320); B QUINTANA IGM Negative titer (Neg:<1:100); BAR HENSELAE IGM Negative titer (Neg:<1:100)
[2019-01-06] MEDS ORDERED: LACTOBACILLUS RHAMNOSUS GG 1 CAPSULE. PO SCH (21:00)
== END 2019-01-06 13:47 | disposition home or self-care (01) | DRG 871 ==
LOC: 5 SOUTH 12:18
PROVIDERS: ADMIT Family Medicine; ATTEND Family Medicine
DX: A41.9 Sepsis, unspecified organism (principal); N17.0 Acute kidney failure with tubular necrosis; D69.6 Thrombocytopenia, unspecified; D70.9 Neutropenia, unspecified; E74.39 Other disorders of intestinal carbohydrate absorption; H93.19 Tinnitus, unspecified ear; I10 Essential (primary) hypertension; K58.0 Irritable bowel syndrome with diarrhea; K76.0 Fatty (change of) liver, not elsewhere classified; M19.90 Unspecified osteoarthritis, unspecified site; W55.03XA Scratched by cat, initial encounter; W57.XXXA Bitten or stung by nonvenomous insect and other nonvenomous arthropods, initial encounter; Z82.49 Family history of ischemic heart disease and other diseases of the circulatory system; Z83.3 Family history of diabetes mellitus; Z86.19 Personal history of other infectious and parasitic diseases; Z87.442 Personal history of urinary calculi; Z87.891 Personal history of nicotine dependence; Z96.641 Presence of right artificial hip joint; Z96.653 Presence of artificial knee joint, bilateral; Z79.899 Other long term (current) drug therapy
CPT/HCPCS: 36415; 70450; 71046; 76705; 80048; 80053; 80076; 81001; 82962; 83605; 83735; 84100; 84145; 85007; 85025; 85610; 85651; 86038; 86431; 86611; 86617; 86618; 86644; 86645; 86663; 86664; 86695; 86705; 86709; 86757; 86788; 86789; 86803; 87040; 87340; 87804; 93005; J0692; J1650; J2405; J7030; Q0162; 97110; G0378

== ENCOUNTER 2019-01-01 11:51 | Emergency (ER) | payer MEDICARE, OTHER ==
[2014-11-17 11:24] VITALS: BP 138/78
[2019-01-06] MEDS ORDERED: DOXY100T PO (12:43)
[2019-01-06] MEDS ORDERED: ZOLP5TAB PO (12:54)
== END 2019-01-01 12:32 | disposition left against medical advice (07) ==
LOC: ER 11:51
DX: F41.9 Anxiety disorder, unspecified (principal); Z53.21 Procedure and treatment not carried out due to patient leaving prior to being seen by health care provider

== ENCOUNTER → 2019-03-17 | Outpatient (CLI) | payer MEDICARE, OTHER ==
[~2019-03-17] MED LIST changes: +DOXY100T PO; +GADOTERATE 7.5 MMOL/15ML VIAL. IVP ONE; +ZOLP5TAB PO
--- NOTE | 2019-03-17 13:03 | RAD ---
MRI left hand with and without contrast dated 03/17/2019. No comparison available. CLINICAL INDICATION: Pain. History of arthritis. TECHNIQUE: Routine multiplanar multisequence MR imaging of left hand performed with and without the administration of 20 cc Dotarem. Findings: Moderate hypertrophic changes of the first carpometacarpal joint with prominent marginal osteophytes. Thinning and surface irregularity of the articular cartilage throughout. There is also mild degenerative change of the scaphotrapezial joint. Mild to moderate hypertrophic changes of the second third and fourth MCP joints. There is probable full-thickness cartilage loss at the head of the second metacarpal subchondral edema. There is also possible subtle erosive change on the radial side with small loose body. Mild degenerative changes of the radiocarpal joint, specifically the scaphoid and lunate. Mild degenerative change of the distal radioulnar joint. Small amount of fluid at the distal radioulnar joint with trace amount of fluid the radiocarpal joint. There is subtle erosive changes of the tip of the ulnar styloid with possible small loose body at the posterior joint space. Mild degenerative change of the pisotriquetral joint. The triangular fibrocartilage complex is blunted and ill-defined. There is likely a large central perforation The articular disc. Styloid and foveal attachments are not well visualized. Scapholunate and lunotriquetral ligaments are grossly intact. Flexor and extensor tendons are intact. Carpal tunnel and Guyon's canal within normal limits. No significant abnormal enhancement or synovial thickening. IMPRESSION: 1. There is moderate degenerative arthrosis and chondromalacia involving the first carpometacarpal joint and second and third MCP joints. Milder degenerative changes at the radiocarpal joint, scaphotrapezial joint and pistriquetral joint. 2. There is a possible subtle erosion at the radial aspect of the head of the second metacarpal, nonspecific. Although inflammatory arthropathy is not excluded, erosions and synovial thickening/enhancement is not the dominant feature. CPPD arthropathy of is another consideration. 3. The triangular fibrocartilage complex is ill-defined, likely related to severe degeneration or chronic tear. Electronically signed by: Charli Cruz MD (03/17/2019 1:00 PM) [id number]
== END | disposition home or self-care (01) ==
LOC: MRI 10:47
PROVIDERS: ATTEND Internal Medicine
DX: M25.842 Other specified joint disorders, left hand (principal); M25.742 Osteophyte, left hand; M19.042 Primary osteoarthritis, left hand; M94.242 Chondromalacia, joints of left hand
CPT/HCPCS: 71552; A9575

== ENCOUNTER → 2019-05-26 | Outpatient (CLI) | payer MEDICARE, OTHER ==
[~2019-05-26] MED LIST changes: -GADOTERATE 7.5 MMOL/15ML VIAL. IVP ONE
--- NOTE | 2019-05-26 16:39 | KCIC ---
Two-view chest dated 05/26/2019. Comparison made to 01/01/2019. Clinical data indication: Bronchitis. Abnormal lung sounds. FINDINGS: PA and lateral views obtained. Heart and mediastinal contours are stable. Lungs are somewhat hyperinflated but otherwise clear. No consolidation or pleural effusion. No pneumothorax. IMPRESSION: No acute radiographic abnormality. Stable findings compared to 01/01/2019. Electronically signed by: Charli Cruz MD (05/26/2019 4:36 PM) [id number]
== END | disposition home or self-care (01) ==
LOC: KCIC 13:10
PROVIDERS: ATTEND Family Medicine
DX: J40 Bronchitis, not specified as acute or chronic (principal)
CPT/HCPCS: 71046

== ENCOUNTER → 2020-03-18 | Outpatient (CLI) | payer MEDICARE, OTHER ==
[~2020-03-18] MED LIST changes: +IOHEXOL 240 MG/ML 50ML VIAL. PO ONE; +IOHEXOL 300 MG/ML 100ML VIAL. IV ONE
--- NOTE | 2020-03-18 17:21 | KCIC ---
CT scan of the abdomen and pelvis with contrast 03/18/2020 CLINICAL HISTORY: Umbilical pain for the last 1-1.5 months which is worsening. TECHNIQUE: After the oral and intravenous administration of contrast, contiguous, 5 mm axial sections were obtained through the abdomen and pelvis. 100 cc of Omnipaque 300 were administered intravenously during this examination. One or more of the following individualized dose reduction techniques were utilized for this study: 1. Automated exposure control. 2. Adjustment of the mA and/or kV according to patient size. 3. Use of iterative reconstruction technique. FINDINGS: Images through the lung bases demonstrate minimal dependent subsegmental atelectasis bilaterally. The liver parenchyma has a decreased attenuation consistent with mild fatty infiltration. A 1 cm calcification is seen involving the inferior aspect of the right lobe of the liver. The spleen, pancreas, adrenal glands and left kidney are within normal limits. Rounded low-attenuation lesions are seen involving the lower pole of the right kidney which measure 5 mm to 1 cm in size. These likely represent cysts. No further imaging evaluation is recommended. Atherosclerotic calcification abdominal aorta is seen. The abdominal aorta tapers normally. The gallbladder is well-distended. No free fluid or free air is seen within the abdomen. There is no evidence of bowel obstruction. No ventral hernia is seen. The appendix is well-visualized and is within normal limits. Images through the pelvis demonstrate the urinary bladder to be contracted. The prostate gland is enlarged likely related to BPH. Calcifications are seen within the prostate gland. Multiple diverticula are seen involving the sigmoid colon. No inflammatory changes are seen adjacent fat. The patient is post right BRIELLE. The patient is post laminectomy and posterolateral fusion extending from L2 to S1 using pedicle screws, stabilizing rods extend across the SI joints bilaterally. Degenerative changes are seen involving the lower thoracic and throughout the lumbar spine along with the left hip. IMPRESSION: No acute abnormality is seen. Electronically signed by: Nile Green MD (03/18/2020 5:16 PM) [id number]
== END ==
LOC: KCIC CT 12:35
PROVIDERS: ATTEND Family Medicine
DX: R10.33 Periumbilical pain (principal); J98.11 Atelectasis; I70.0 Atherosclerosis of aorta; N28.89 Other specified disorders of kidney and ureter; N40.0 Benign prostatic hyperplasia without lower urinary tract symptoms; K57.30 Diverticulosis of large intestine without perforation or abscess without bleeding; M47.815 Spondylosis without myelopathy or radiculopathy, thoracolumbar region
CPT/HCPCS: 74177; 82565; Q9966; Q9967

== ENCOUNTER → 2020-09-20 | Outpatient (CLI) | payer MEDICARE, OTHER ==
[~2020-09-20] MED LIST changes: -IOHEXOL 240 MG/ML 50ML VIAL. PO ONE; -IOHEXOL 300 MG/ML 100ML VIAL. IV ONE; +LISI10TA16 PO; -LISI10TA2 PO
--- NOTE | 2020-09-20 14:09 | KCIC ---
EXAM: Bilateral hands 3 views. HISTORY: Rheumatoid arthritis, pain. COMPARISON: None. FINDINGS: There appear to be chronic fracture deformities along the distal radial metaphyses bilatera lly. This results in 4 inclination of the left distal radial articular surface with a rim of osteophy yaima anteriorly. There are similar but lesser findings on the right. Bilateral nonunified styloid frag ments are noted. There is also a chronic fracture deformity of the right fifth metacarpal. No acute f ractures are seen. No clear erosions are seen bilaterally. There is relatively uniform joint space narrowing along the l unate fossae on the left greater than right. Metacarpophalangeal osteoarthritis is moderate to severe along the first through third rays bilaterally, and mild at the fourth and fifth rays. It is also re latively mild throughout the interphalangeal joints. Alignment is maintained. There may be partial coalition of the left lunate and triquetrum. IMPRESSION: 1. Osteoarthritis appears to be the primary process. There may be some uniform joint space narrowing along the left greater than right radiocarpal joint in addition to chronic healed fracture deformitie s. No active erosions are seen. Electronically signed by: Darnell Plasencia MD (09/20/2020 2:07 PM) [id number]
== END ==
LOC: KCIC 10:26
PROVIDERS: ATTEND Internal Medicine
DX: M19.042 Primary osteoarthritis, left hand (principal); M19.041 Primary osteoarthritis, right hand; M05.741 Rheumatoid arthritis with rheumatoid factor of right hand without organ or systems involvement; M05.742 Rheumatoid arthritis with rheumatoid factor of left hand without organ or systems involvement
CPT/HCPCS: 73130-50